=== PATIENT | female | born 1975 | race Caucasian/White ===

== ENCOUNTER 2019-11-18 18:49 | Emergency (ER) | payer BC, SELFPAY ==
[2019-11-18] VITALS (7 sets, daily range): BP systolic 126–151; BP diastolic 73–91; PULSE 97–123; RESP 16–20; TEMP 36.7–36.9; O2SAT 98–99
--- NOTE | ~2019-11-18 | XR_ITS ---
EXAMINATION: XR chest 2V EXAM DATE: 11/18/2019 19:27 INDICATION: Tachycardia and shortness of breath. TECHNIQUE: Frontal and lateral projections of the chest obtained and reviewed. There is no prior maximilian dy for comparison. FINDINGS: The lungs are clear. There are no pleural effusions. The cardiomediastinal silhouette is within normal limits. There is no pneumothorax suspected. The bones and soft tissues are unremarkab le. There are cholecystectomy clips. IMPRESSION: No acute cardiopulmonary findings. Reviewed, dictated and finalized at location A. CTIVE CAPTAIN
--- NOTE | 2019-11-18 18:58 | ECG_ITS ---
Measurements Intervals [place] Rate: 122 P: 56 [place]: 112 QRS: 71 QRSD: 86 T: 19 QT: 287 QTc: 410 Interpretive Statements SINUS TACHYCARDIA ABNORMAL ECG Electronically Signed On 11-19-2019 6:54:54 BLOOD BANK SPECIALIST by Jeanmarie Waterman D.O.
--- NOTE | 2019-11-18 19:06 | ED.CHESTPAIN ---
HPI - Chest Pain General Chief Complaint: Chest Pain Stated Complaint: Tachycardia,CP Time Seen by Provider: 11/18/19 18:57 Source: patient and RN notes reviewed Mode of arrival: other Limitations: no limitations History of Present Illness HPI narrative: Pt is a 44 y/o female who presents to the ED with c/o intermittent chest heaviness pain that radiates to her left sided neck and her left shoulder, but became more constant today. Pt describes the pain in her neck and shoulder as a tightness pain. Pt states that her heart rate was 136 BPM while resting and she notes her resting heart rate is normally at 99 BPM. Pt was seen at [place] today. She states that she thought she had an episode of esophagitis. Pt takes Protonix for her esophagitis. She states that increased her dosage of Protonix from one tablet a day to 2 tablets a day two weeks ago. Pt took Tums last night for her sx, but with no relief. Pt had 4 ASA while at [place] and she states that she is currently pain free. She also reports an intermittent heart flutter for the past two months, but she denies seeing her PCP about her sx. She notes that her next appointment with her PCP is in three months. Pt reports resolved SOB, but denies dizziness, diaphoresis, and nausea. MD complaint: chest pain Onset (ago): week(s) (1) Timing of current episode: now resolved Pain location: other (generalized) Pain radiation: neck and left shoulder Quality: heaviness Associated symptoms: dyspnea (resolved) and other (tachycardia, heart flutters) Treatment prior to arrival: aspirin (4) Related Data Allergies Allergy/AdvReac Type Severity Reaction Status Date / Time Penicillins Allergy Unknown Verified 11/18/19 19:08 Sulfa (Sulfonamide Allergy Unknown Verified 11/18/19 19:08 Antibiotics) Review of Systems Review of Systems: All systems reviewed & are unremarkable except as noted in HPI and below Cardiovascular: Cardiovascular: Reports chest pain (heaviness, that radiates to her left sided neck and left shoulder), Denies diaphoresis, Reports rapid heart rate and Reports irregular heart rhythm Respiratory: Respiratory: Reports dyspnea (resolved) Gastrointestinal: Gastrointestinal: Denies nausea Neurologic: Denies dizziness PMFSH Past Medical History Medical History (Updated 11/19/19 @ 00:00 by Background Daemon) Esophagitis Fatty liver GERD (gastroesophageal reflux disease) Restless leg syndrome Ruptured appendix Surgical History Surgical History (Updated 11/18/19 @ 19:27 by Michelle Cruz) History of bladder suspension procedure History of ERCP History of hysterectomy Hx of cholecystectomy Hx of tonsillectomy Family History Family History (Updated 11/18/19 @ 19:26 by Michelle Cruz) Father , age 66 d/t liver cancer Hx of heart artery stent, Onset Age: 53 x5 Liver cancer Social History Social History (Updated 11/18/19 @ 19:30 by Michelle Cruz) Social History: Pt smokes about 2 cigarettes a week. Pt only smokes whenever she is stressed. Smoking status: Current some day smoker Tobacco type: cigarettes Alcohol intake: never Substance use: never Substance use type: does not use Gender identity (if verbalized by the patient): Female Exam Narrative: Exam Narrative: GENERAL: Well-appearing, well-nourished, and in no acute distress. HEAD: Normocephalic, atraumatic EYES: PERRLA and EOMI, conjunctiva clear without discharge THROAT:Mucous membranes moist, Oropharynx normal without erythema, exudate, peritonsillar swelling or fluctuance NECK: Supple, without lymphadenopathy or mass RESPIRATORY: No respiratory distress, Airway patent, Respirations non-labored, Clear to auscultation without rales, rhonchi or wheeze HEART: Tachycardic Regular rate and regular rhythm. No murmur heard. Normal peripheral pulses. ABDOMEN: Soft, nontender, nondistended, normal active bowel sounds. No masses. No rebound or guarding, No organom
[2019-11-18 19:29] LABS: Basophils Percent Auto 0.2 % (0.2-1.2); Eosinophils Absolute Auto 0.1 K/mm3 (0-0.3); Eosinophils Percent Auto 1.4 % (0-4.4); Hematocrit 44.1 % (37.0-47.0); Hemoglobin 14.6 g/dL (12.0-15.0); Immature Granulocyte Absolute 0.02 K/mm3 (0.00-0.031); Immature Granulocyte Percent A 0.2 % (0-0.5); Lymphocytes Absolute Auto 3.03 K/mm3 (0.9-3.2); Lymphocytes Percent Auto 35.7 % (18.3-44.2); Mean Corpuscular HGB Conc 33.1 g/dl (32-36); Mean Corpuscular Hemoglobin 28.9 pg (26-34); Mean Corpuscular Volume 87.2 fl (80-100); Mean Platelet Volume 9.8 fl (7.4-10.4); Monocytes Absolute Auto 0.8 K/mm3 (0.1-0.6); Monocytes Percent Auto 9.9 % (2.6-8.5); Neutrophils Absolute Auto 4.5 K/mm3 (1.3-6.7); Neutrophils Percent Auto 52.6 % (45.5-73.1); Platelet Count Result 342 k/mm3 (150-375); Red Blood Count 5.06 M/mm3 (4.2-5.4); Red Cell Distribution Width 11.7 % (11.5-14.5); White Blood Count 8.5 K/mm3 (4.5-10.0)
[2019-11-18] MEDS: LACTATED RINGERS 1,000 ML 999 ML IV CONT (19:29)
[2019-11-18 19:43] LABS: Alanine Aminotransferase 49 U/L (4-35); Albumin Level 4.7 g/dL (3.5-5.1); Alkaline Phosphatase 138 U/L (38-126); Aspartate Amino Transferase 34 U/L (14-36); Bilirubin,Total 0.8 mg/dL (0.2-1.3); Blood Urea Nitrogen 12 mg/dL (7-17); Calcium 9.2 mg/dL (8.4-10.2); Carbon Dioxide 26 mmol/L (22-30); Chloride 100 mmol/L (98-107); Estimated Glomerular Filt Rate > 60; Glucose 122 mg/dL (65-105); Magnesium 1.9 mg/dL (1.6-2.3); Sodium 141 mmol/L (137-145)
[2019-11-18 19:51] LABS: Troponin I < 0.012 ng/mL (0.000-0.034)
[2019-11-18 20:03] LABS: INR 0.9; Partial Thromboplastin Time 27.9 SECONDS (22.3-36.8); Prothrombin Time 11.5 Seconds (11.1-14.7)
[2019-11-18 20:04] LABS: Lactic Acid Reflex 1.9 mmol/L (0.7-2.1)
[2019-11-18 20:07] LABS: D Dimer 0.27 ug/mL (<0.48)
[2019-11-18 21:58] LABS: Thyroid Stimulating Hormone Reflex < 0.015 uIU/mL (0.465-4.68)
[2019-11-18 22:48] LABS: Troponin I < 0.012 ng/mL (0.000-0.034)
[2019-11-18 22:53] LABS: Free T4 Free Thyroxine Reflex < 0.07 ng/dL (0.78-2.19)
== END 2019-11-18 23:18 | disposition home or self-care (01) ==
PROVIDERS: Emergency Provider General Practice
DX: R07.89 Other chest pain (principal); R00.0 Tachycardia, unspecified; K21.0 Gastro-esophageal reflux disease with esophagitis; G25.81 Restless legs syndrome
CPT/HCPCS: 36415; 71046; 80053; 83605; 83735; 84439; 84443; 84484; 85025; 85380; 85610; 85730; 93005; 96360; 99284; J7120

== ENCOUNTER 2021-12-20 16:27 | Outpatient (CLI) | payer OTHER, SELFPAY ==
--- NOTE | ~2021-12-20 | MM_ITS ---
EXAMINATION: MM scrn misha implant BI w davonte HISTORY: Screening mammogram TECHNIQUE: Craniocaudal and mediolateral oblique 3-D tomosynthesis images with implant displacement a nd synthetic 2-D images were generated. Craniocaudal and mediolateral oblique views of the breasts wi thout implant displacement were obtained using full field digital mammography. CAD analysis was submi tted and interpreted. COMPARISON: No prior mammogram is available for comparison at this institution. BREAST PARENCHYMAL COMPOSITION: The breasts are extremely dense, which lowers the sensitivity of mamm ography FINDINGS: There are focal asymmetries centered in the upper outer quadrant of the right breast. There are no suspicious masses, calcifications or architectural distortion in the left breast to suggest m alignancy. IMPRESSION: 1. Focal asymmetries in the right breast. 2. Additional mammographic views and possible breast ultrasound are recommended. BI-RADS Category 0: Incomplete: Needs additional imaging evaluation. Reviewed, dictated and finalized at location A. IMPRESSION: 1. Focal asymmetries in the right breast. 2. Additional mammographic views and possible breast ultrasound are recommended . BI-RADS Category 0: Incomplete: Needs additional imaging evaluation.
== END 2021-12-20 16:28 | disposition home or self-care (01) ==
LOC: ANHIMG 16:29
PROVIDERS: Visit Provider Nurse Practitioner Obstetrics & Gynecology
DX: Z12.31 Encounter for screening mammogram for malignant neoplasm of breast (principal); R92.8 Other abnormal and inconclusive findings on diagnostic imaging of breast
CPT/HCPCS: 77063; 77067

== ENCOUNTER 2022-01-23 12:54 | Outpatient (CLI) | payer OTHER, SELFPAY ==
--- NOTE | ~2022-01-23 | MMUS_ITS ---
EXAMINATION: MM diagnostic misha BI w davonte, US breast BI complete HISTORY: Follow-up breast asymmetries TECHNIQUE: Additional 3-D tomosynthesis images of the breasts were performed and synthetic 2-D images were generated. CAD analysis was submitted and interpreted. High resolution complete bilateral breas t ultrasound was performed. COMPARISON: Comparison to multiple prior studies sequentially, with oldest reviewed study dated 06/19. BREAST PARENCHYMAL COMPOSITION: The breasts are heterogenously dense, which may obscure small masses FINDINGS: MAMMOGRAPHIC FINDINGS: There are no discrete masses, calcifications or architectural distortion in either breast to suggest malignancy. ULTRASOUND: Complete bilateral US of all 4 quadrants of the breasts and retroareolar region was reviewed. Right breast: At 2:00, 5 cm from the nipple there is an oval hypoechoic mass with low level internal echoes measuring 8 x 7 x 4 mm. There is parallel orientation. There is peripheral acoustic enhancemen t. No internal vascularity. At 3:00 near the nipple is a cluster of microcysts. Left breast: Normal heterogeneous echotexture without focal solid or cystic mass. IMPRESSION: 1. Probable benign right breast mass at 2:00, 5 cm from the nipple. 2. Recommend 6 month follow-up diagnostic bilateral mammogram and limited right breast ultrasound. BI-RADS category 3, probably benign findings. Reviewed, dictated and finalized at location A. IMPRESSION: 1. Probable benign right breast mass at 2:00, 5 cm from the nipple. 2. Recommend 6 month follow-up diagnostic bilateral mammogram and limited right breast ultrasound. BI-RADS category 3, probably benign findings.
== END 2022-01-23 12:55 | disposition home or self-care (01) ==
PROVIDERS: Visit Provider Nurse Practitioner Obstetrics & Gynecology
DX: R92.8 Other abnormal and inconclusive findings on diagnostic imaging of breast (principal)
CPT/HCPCS: 76641; 77062; 77066; G0279

== ENCOUNTER → 2022-08-15 10:50 | Outpatient (CLI) | payer OTHER, SELFPAY ==
--- NOTE | ~2022-08-15 | CT_ITS ---
EXAMINATION: CT abdomen pelvis wo/w con DATE: 08/15/2022 11:25 INDICATION: Recurrent urinary tract infections TECHNIQUE: Computed tomography (CT) of the abdomen and pelvis was performed without and subsequently with 130 CC Omnipaque 350 intravenous contrast. Automated exposure control and iterative reconstructi on technique were employed. Exam dose: 943.99 mGy-cm total exam DLP. COMPARISON: None. FINDINGS: The lung bases are clear. Normal heart size. No pericardial or pleural effusion. Status post cholecystectomy. No hepatic, splenic, pancreatic, adrenal space-occupying mass lesion. 6 mm posterior upper pole left renal cyst. No renal mass lesion or scarring or renal atrophy is noted otherwise. No abnormal filling defect of the renal collecting structures, ureters or urinary bladder is noted. No urinary bladder wall thickening. No urinary tract calculus or hydroureteronephrosis. Status post hysterectomy. Normal caliber of the abdominal aorta. No intraperitoneal or retroperitoneal or pelvic mass lesion or adenopathy or ascites. Normal appendix. There is relative evacuation of the colon with mild: wall thickening and some fat in the wall which may be due to acute superimposed upon chronic inflammation. There is mild liquid stoo l accumulation in the colon. No bowel obstruction, pneumatosis or intraperitoneal free air. There is fusion of the T10-T12 vertebral bodies. No suspicious osteolytic or osteoblastic lesions are noted. IMPRESSION: Status post cholecystectomy Status post hysterectomy Normal appendix Acute superimposed upon chronic colitis is suggested 6 mm left renal cyst Reviewed, dictated and finalized at Location A. Reviewed, dictated and finalized at location B. URCE DEVELOPMENT MANAGER
[2022-08-15 11:07] LABS: Estimated Glomerular Filt Rate > 60
== END ==
PROVIDERS: PCP Nurse Practitioner Adult Health
DX: R39.9 Unspecified symptoms and signs involving the genitourinary system (principal); Z90.49 Acquired absence of other specified parts of digestive tract; N28.1 Cyst of kidney, acquired
CPT/HCPCS: 74178; Q9967

== ENCOUNTER 2022-12-27 11:14 | Outpatient (CLI) | payer OTHER, SELFPAY ==
--- NOTE | ~2022-12-27 | US_ITS ---
US right upper quadrant INDICATION: Fatty infiltration of the liver PROCEDURE: Realtime right upper abdominal ultrasound. COMPARISON: No prior studies for comparison. FINDINGS: The pancreas is normal without focal mass or pancreatic ductal dilation. Liver echotexture is normal without focal mass or intrahepatic biliary dilatation. There is normal directional flow i n the portal vein. The gallbladder is normal without stones, gallbladder wall thickening or pericholecystic fluid. Comm on bile duct measures 3.5 mm. No sonographic Boyce's sign. IMPRESSION: 1: Normal limited abdominal ultrasound. Reviewed, dictated and finalized at location B.
== END 2022-12-27 11:15 | disposition home or self-care (01) ==
PROVIDERS: PCP Nurse Practitioner Adult Health
DX: K76.0 Fatty (change of) liver, not elsewhere classified (principal)
CPT/HCPCS: 76705

== ENCOUNTER 2022-12-27 11:45 | Outpatient (CLI) | payer OTHER, SELFPAY ==
--- NOTE | ~2022-12-27 | MMUS_ITS ---
EXAMINATION: MM diagnostic misha BI w davonte, US breast BI complete HISTORY: Probable benign right breast mass at 2:00 5 cm from nipple, for which six-month diagnostic m ammogram and limited right breast ultrasound follow-up are recommended on 02/02/2022 bilateral diagnos tic mammogram and bilateral breast ultrasound report TECHNIQUE: ML, MLO and CC full field and spot 3-D tomosynthesis images of both breasts were performed and synthetic 2-D images were generated. CAD analysis was submitted and interpreted. High resolution bilateral complete breast ultrasound examination including all 4 quadrants and subareolar areas was performed. COMPARISON: 02/02/2022 bilateral diagnostic mammogram and bilateral breast ultrasound examination 12/20/2021 bilateral implant screening mammogram BREAST PARENCHYMAL COMPOSITION: The breasts are extremely dense, which lowers the sensitivity of mamm ography. FINDINGS: MAMMOGRAPHIC FINDINGS: Collapsed left breast implant. Minimal benign calcification is noted in the breasts. No suspicious mass or architectural distortion, malignant calcification, skin thickening or retractio n or significant new or developing density is detected. ULTRASOUND: Right breast: 2:00 5 cm from nipple: Parallel circumscribed hypoechoic 4 x 7.5 mm lesion without internal vasculari ty or posterior shadowing, benign in appearance 10:00 10 cm from nipple: Parallel circumscribed hypoechoic 3.8 x 8.8 mm hypoechoic lesion without int ernal vascularity, with through transmission posterior enhancement, benign in appearance No left suspicious mass or shadowing is detected. Left breast: No suspicious mass or shadowing is detected. No other significant sonographic abnormalit y. IMPRESSION: 1. Benign findings 2. Routine annual mammographic screening is recommended. BI-RADS Category 2: Benign finding(s). Reviewed, dictated and finalized at location A. IMPRESSION: 1. Benign findings 2. Routine annual mammographic screening is recommended. BI-RADS Category 2: Benign finding(s).
== END 2022-12-27 11:46 | disposition home or self-care (01) ==
LOC: ANHIMG 11:46
PROVIDERS: PCP Nurse Practitioner Adult Health; Visit Provider Nurse Practitioner Obstetrics & Gynecology
DX: N63.10 Unspecified lump in the right breast, unspecified quadrant (principal)
CPT/HCPCS: 76641; 77062; 77066; G0279

== ENCOUNTER 2024-02-01 13:24 | Outpatient (CLI) | payer OTHER, SELFPAY ==
--- NOTE | ~2024-02-01 | MMUS_ITS ---
EXAMINATION: MM diagnostic misha BI w davonte, US breast BI complete HISTORY: Left breast lumps TECHNIQUE: Bilateral full field MLO, MLO and CC and spot left MLO, MLO and CC 3-D tomosynthesis image s were performed and synthetic 2-D images were generated. CAD analysis was submitted and interpreted. High resolution bilateral complete breast ultrasound examination including all 4 quadrants and subar eolar area of each breast was performed. COMPARISON: December 27, 2022 bilateral diagnostic mammogram and bilateral complete breast ultrasound ex amination BREAST PARENCHYMAL COMPOSITION: The breasts are heterogeneously dense, which may obscure small masses . FINDINGS: MAMMOGRAPHIC FINDINGS: Collapsed left breast implant is noted. No suspicious mass or architectural distortion, malignant calcification, skin thickening or retractio n or significant new or developing density is detected. ULTRASOUND: Right breast: No suspicious mass or shadowing is detected. 1:00 6 images from nipple: Well-circumscribed multi septated cyst with through transmission posterio r enhancement 10:00 5 cm from nipple: Well-circumscribed septated cyst with through transmission and posterior enh ancement. This measures 2.5 x 6.6 x 6.1 mm. Left breast: No suspicious mass or shadowing or other specific sonographic abnormality IMPRESSION: 1. Benign findings 2. Routine annual mammographic screening is recommended BI-RADS Category 2: Benign finding(s). Reviewed, dictated and finalized at location B. IMPRESSION: 1. Benign findings 2. Routine annual mammographic screening is recommended BI-RADS Category 2: Benign finding(s).
== END 2024-02-01 13:25 | disposition home or self-care (01) ==
PROVIDERS: PCP Nurse Practitioner Adult Health; Visit Provider Nurse Practitioner
DX: N63.0 Unspecified lump in unspecified breast (principal)
CPT/HCPCS: 76641; 77062; 77066; G0279

== ENCOUNTER 2024-03-28 10:15 | Outpatient (CLI) | payer BC, SELFPAY ==
--- NOTE | ~2024-03-28 | US_ITS ---
EXAMINATION: US thyroid DATE: 03/28/2024 10:32 INDICATION: Goiter. TECHNIQUE: Multiple ultrasound images of the thyroid were obtained. COMPARISON: None. FINDINGS: The right thyroid lobe measures 3.8 x 0.8 x 1.5 cm. The left thyroid lobe measures 3.2 x 0.7 x 0.9 c m. There is normal echotexture and echogenicity throughout the thyroid gland. No discrete nodules id entified. Normal vascular flow is present. IMPRESSION: 1. Normal thyroid. Reviewed, dictated and finalized at location E. IMPRESSION: 1. Normal thyroid.
== END 2024-03-28 10:16 ==
PROVIDERS: PCP Internal Medicine; Visit Provider Internal Medicine
DX: E04.9 Nontoxic goiter, unspecified (principal)
CPT/HCPCS: 76536

== ENCOUNTER 2024-08-22 09:58 | Outpatient (CLI) | payer BC, SELFPAY ==
--- NOTE | ~2024-08-22 | DEXA_ITS ---
Bone Density Report Name: JOSE ALFREDO HERNANDEZ Age: 49 Sex: Female Ethnicity: White Date of : 1975 Indication: postmenopausal; screening for osteoporosis; prior fracture; hysterectomy; Referring Provider: YESENIA MILLIGAN Study: Bone densitometry was performed. Exam Date: August 22, 2024 Accession number: [id number] Bone Density: Region BMD T-score Z-score Classification AP Spine(L1-L4) 0.976 -0.6 0.2 Normal Femoral Neck (Left) 0.666 -1.7 -0.8 Osteopenia Total Hip (Left) 0.854 -0.7 -0.2 Normal Femoral Neck (Right) 0.661 -1.7 -0.9 Osteopenia Total Hip (Right) 0.797 -1.2 -0.7 Osteopenia Total Hip Mean 0.826 -1.0 -0.5 Normal World Health Organization criteria for BMD impression classify patients as: Normal (T-score at or above -1.0), Osteopenia (T-score between -1.0 and -2.5), or Osteoporosis (T-score at or below -2.5). 10-year Fracture Risk: FRAX not reported because: Prior hip or vertebral fracture Clinical Information Provided by Patient: Have had a previous hip or vertebral fracture Has had a low trauma fracture Smokes Has used the following medications: HRT (i.e. estrogen/hormone therapy), Vitamin D, Calcium, mulit vit Has the following medical conditions: Hysterectomy Patient maximum height was 63 Menopause Age: 34 Drinks caffeinated beverages Onset of menses at age 11 Number of children 2 Impression: The patient has low bone mass, based on the Left Femoral Neck T-score. The patient has risk factors, including: smoking, previous fracture. Discussion: INCREASED RISK OF FRACTURE DUE TO HISTORY OF FRACTURE. The patient's previous fracture puts the patient at high risk of a future fracture. In untreated patients, the risk of osteoporotic fracture increases approximately two-fold for each 1.0 SD decrease in T-score. Low bone density is not the only risk factor for fracture; also consider factors such as patient's age, frailty or poor health, risk of falling, risk of injury, previous osteoporotic fracture, family history of osteoporosis, cigarette smoking, low body weight, etc. Not everyone with a low trauma fracture has osteoporosis; osteomalacia and other metabolic bone disorders should also be considered. Patients who have osteoporosis should be evaluated for specific diseases and conditions (secondary causes) that may cause or contribute to bone loss and fracture risk. National Osteoporosis Foundation (NOF) recommends pharmacologic intervention for patients with a prior hip or vertebral fracture regardless of BMD T-score. The patient should follow a healthful lifestyle (good nutrition with adequate calcium and vitamin D, and appropriate weight-bearing exercise). Follow-Up: Consider a repeat BMD and Vertebral Fracture Assessment (VFA) exam in 2 years or sooner if medically necessary, to reassess this patient's status. Reported by: ADONIS on 08/22/2024 10:36:00 AM. Reviewed, dictated and finalized at location AN[facility] BILLINGS
== END 2024-08-22 09:59 | disposition home or self-care (01) ==
LOC: ANHIMG 10:03
PROVIDERS: PCP Internal Medicine; Visit Provider Internal Medicine
DX: E05.80 Other thyrotoxicosis without thyrotoxic crisis or storm (principal); E03.9 Hypothyroidism, unspecified; M85.852 Other specified disorders of bone density and structure, left thigh; M85.851 Other specified disorders of bone density and structure, right thigh
CPT/HCPCS: 77080

== ENCOUNTER 2025-05-27 10:14 | Outpatient (CLI) | payer BC, SELFPAY ==
--- OUTSIDE RECORDS SUMMARY | 2013-02-26 | XMS_ITS | Encounter Summary ---
Author Organization [facility] Healthcare Address [address] [place] [address] Care Team Providers Care Scuba Diver Name Role Phone Unavailable Primary Care Provider Unavailabl e Reason for Visit * Diagnostic Imaging (Routine) - Closed Specialty Diagnoses / Procedures Referred By Jose Cruz munguia Referred To Contact Procedures Breast Imaging US Outside Reference Krista Warren NP Phone: tel: fax: Referral ID Status Reason Start Date Expiration Date Visits Re quested Visits Authorized [id number] Closed 02/23/2022 03/25/2023 1 1 Encounter Details Date Type Department Care Team (Late st Contact Info) Description 02/26/2013 Hospital Encounter [facility] [address] [place] [address] Social History Tobacco Use Types Packs/Day [...] on file Legal Sex Female 1:09 PM 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 There will be no report generated by a [facility] Radiologist. Narrative RAD_M[facility]MO[facility] - 02/23/2022 12:07 PM CDT EXAMINATION: Images For Reference Purposes Only us Krista Warren NP IMG MAMMO PROCEDURES Final Re sult [facility] documented in this encounter Visit Diagnoses Not on filedocumented in this encounter
--- OUTSIDE RECORDS SUMMARY | 2016-11-10 01:00 | XMS_ITS | Encounter Summary ---
Author Organization [facility] Healthcare Address [address] [place] [address] Care Team Providers Care Boring Mill Set Up Operator Vertical Name Role Phone Unavailable Primary Care Provider Unavailabl e Reason for Visit * Diagnostic Imaging (Routine) - Closed Specialty Diagnoses / Procedures Referred By Jose Cruz munguia Referred To Contact Procedures Breast Imaging US Outside Reference Krista Warren NP Phone: tel: fax: Referral ID Status Reason Start Date Expiration Date Visits Re quested Visits Authorized [id number] Closed 02/23/2022 03/25/2023 1 1 Encounter Details Date Type Department Care Team (Late st Contact Info) Description 11/10/2016 Hospital Encounter [facility]iology [facility] [address] [place] [address] Social History Tobacco Use Types Packs/Day [...] on file Legal Sex Female 1:09 PM MAILS SUPERVISOR Gender Identity Not on file Sexual Orientation Not on file documented as of this encounter Plan of Treatment Not on file documented as of this encounter Procedures Procedure Name Priority Date/Time Associated Diagnosis Comments BREAST IMAGING US OUTSIDE REFERENCE Routine 11/10/2016 12:00 AM MAILS SUPERVISOR documented in this encounter Results * Breast Imaging US Outside Reference (11/10/2016 12:00 AM MAILS SUPERVISOR) Impressions [facility] - 02/23/2022 12:07 PM CDT These images are for Reference purposes only and have not been reviewed by [facility]. There will be no report generated by a [facility] Radiologist. Narrative RAD[facility]MO[facility] - 02/23/2022 12:07 PM CDT EXAMINATION: Images For Reference Purposes Only us Krista Warren NP IMG MAMMO PROCEDURES Final Re sult [facility] documented in this encounter Visit Diagnoses Not on filedocumented in this encounter
--- OUTSIDE RECORDS SUMMARY | 2016-11-13 01:00 | XMS_ITS | Encounter Summary ---
Author Organization [facility] Healthcare Address [address] [place] [address] Care Team Providers Care Pie Bottomer Name Role Phone Unavailable Primary Care Provider Unavailabl e Reason for Visit * Diagnostic Imaging (Routine) - Closed Specialty Diagnoses / Procedures Referred By Jose Cruz munguia Referred To Contact Procedures Breast Imaging Diagnostic Outside Reference Krista Warren NP Phone: tel: fax: Referral ID Status Reason Start Date Expiration Date Visits Re quested Visits Authorized [id number] Closed 02/23/2022 03/25/2023 1 1 Encounter Details Date Type Department Care Team (Late st Contact Info) Description 11/13/2016 Hospital Encounter [facility] [address] [place] [address] Social History Tobacco Use Types Packs/Day [...] on file Legal Sex Female 1:09 PM STRAP CUTTER Gender Identity Not on file Sexual Orientation Not on file documented as of this encounter Plan of Treatment Not on file documented as of this encounter Procedures Procedure Name Priority Date/Time Associated Diagnosis Comments BREAST IMAGING MG DIAGNOSTIC OUTSIDE REFERENCE Routine 11/13/2016 12:00 AM STRAP CUTTER documented in this encounter Results * Breast Imaging Diagnostic Outside Reference (11/13/2016 12:00 AM STRAP CUTTER) Impressions RAD[facility]MO[facility] - 02/23/2022 12:06 PM CDT These images are for Reference purposes only and have not been reviewed by [facility]iology. There will be no report generated by a [facility] Radiologist. Narrative RAD_M[facility]MO[facility] - 02/23/2022 12:06 PM CDT EXAMINATION: Images For Reference Purposes Only us rKista Warren NP IMG MAMMO PROCEDURES Final Re sult [facility] documented in this encounter Visit Diagnoses Not on filedocumented in this encounter
--- OUTSIDE RECORDS SUMMARY | 2017-05-24 | XMS_ITS | Encounter Summary ---
Author Organization [facility] Healthcare Address [address] [place] [address] Care Team Providers Care Tongue And Groove Machine Operator Name Role Phone Unavailable Primary Care Provider Unavailabl e Reason for Visit * Diagnostic Imaging (Routine) - Closed Specialty Diagnoses / Procedures Referred By Jose Cruz munguia Referred To Contact Procedures Breast Imaging Diagnostic Outside Reference Krista Warren NP Phone: tel: fax: Referral ID Status Reason Start Date Expiration Date Visits Re quested Visits Authorized [id number] Closed 02/23/2022 03/25/2023 1 1 Encounter Details Date Type Department Care Team (Late st Contact Info) Description 05/24/2017 Hospital Encounter [facility] Radiology [facility] [address] [place] [address] Social History Tobacco Use Types Packs/Day [...] on file Legal Sex Female 1:09 PM PULMONARY CARE NURSE Gender Identity Not on file Sexual Orientation [...] only and have not been reviewed by [facility] Radiology. There will be no report generated by a [facility] Radiologist. Narrative RAD_MAMMO_[facility] - 02/23/2022 12:05 PM CDT EXAMINATION: Images For Reference Purposes Only us Krista Warren NP IMG MAMMO PROCEDURES Final Re sult RAD_M[facility] documented in this encounter Visit Diagnoses Not on filedocumented in this encounter
--- OUTSIDE RECORDS SUMMARY | 2017-05-24 00:05 | XMS_ITS | Encounter Summary ---
Author Organization [facility] Healthcare Address [address] [place] [address] Care Team Providers Care Circular Sawyer Stone Name Role Phone Unavailable Primary Care Provider Unavailabl e Reason for Visit * Diagnostic Imaging (Routine) - Closed Specialty Diagnoses / Procedures Referred By Jose Cruz munguia Referred To Contact Procedures Breast Imaging US Outside Reference Krista Warren NP Phone: tel: fax: Referral ID Status Reason Start Date Expiration Date Visits Re quested Visits Authorized [id number] Closed 02/23/2022 03/25/2023 1 1 Encounter Details Date Type Department Care Team (Late st Contact Info) Description 05/24/2017 12:05 AM CDT Hospital Encounter [facility] [address] [place] [address] Social History Tobacco Use Types Packs/Day [...] on file Legal Sex Female 1:09 PM SENIOR QUALITY METHODS SPECIALIST Gender Identity Not on file Sexual [...] have not been reviewed by [facility]iology. There will be no report generated by a [facility] Radiologist. Narrative RAD_MAMMO_[facility] - 02/23/2022 12:06 PM CDT EXAMINATION: Images For Reference Purposes Only us Krista Warren ARTIST WOODBLOCK IMG MAMMO PROCEDURES Final Re sult RAD_M[facility]MO[facility] documented in this encounter Visit Diagnoses Not on filedocumented in this encounter
--- OUTSIDE RECORDS SUMMARY | 2017-12-13 | XMS_ITS | Encounter Summary ---
Author Organization [facility] Healthcare Address [address] [place] [address] Care Team Providers Care Administrative Law Judge Name Role Phone Unavailable Primary Care Provider Unavailabl e Reason for Visit * Diagnostic Imaging (Routine) - Closed Specialty Diagnoses / Procedures Referred By Jose Cruz munguia Referred To Contact Procedures Breast Imaging Diagnostic Outside Reference Krista Warren NP Phone: tel: fax: Referral ID Status Reason Start Date Expiration Date Visits Re quested Visits Authorized [id number] Closed 02/23/2022 03/25/2023 1 1 Encounter Details Date Type Department Care Team (Late st Contact Info) Description 12/13/2017 Hospital Encounter [facility]iology [facility] [address] [place] [address] Social History Tobacco Use Types Packs/Day [...] on file Legal Sex Female 1:09 PM FURS SALESPERSON Gender Identity Not on file Sexual Orientation [...] only and have not been reviewed by [facility] Radiology. There will be no report generated by a [facility] Radiologist. Narrative RAD_MAMMO_[facility] - 02/23/2022 12:05 PM CDT EXAMINATION: Images For Reference Purposes Only us Krista Warren NP IMG MAMMO PROCEDURES Final Re sult [facility] documented in this encounter Visit Diagnoses Not on filedocumented in this encounter
--- OUTSIDE RECORDS SUMMARY | 2018-07-17 | XMS_ITS | Encounter Summary ---
Author Organization [facility] Healthcare Address [address] [place] [address] Care Team Providers Care Fire Crew Specialist Name Role Phone No, Physician Primary Care Provider [phone] Reason for Visit * Diagnostic Imaging (Routine) - Closed Specialty Diagnoses / Procedures Referred By Jose Cruz munguia Referred To Contact Procedures Breast Imaging Diagnostic Outside Reference Krista Warren, OBED Phone: tel: fax: Referral ID Status Reason Start Date Expiration Date Visits Re quested Visits Authorized [id number] Closed 02/23/2022 03/25/2023 1 1 Encounter Details Date Type Department Care Team (Late st Contact Info) Description 07/17/2018 Hospital Encounter [facility] [address] [place] [address] Social History Tobacco Use Types [...] on file 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 There will be no report generated by a [facility] Radiologist. Narrative [facility] - 02/23/2022 12:04 PM CDT EXAMINATION: Images For Reference Purposes Only us Krista Warren RAISER HELPER IMG MAMMO PROCEDURES Final Re sult [facility] documented in this encounter Visit Diagnoses Not on filedocumented in this encounter Care Teams Fire Crew Specialist Relationship Specialty Start Date End Date No, Physician PCP - General 01/12/18 01/29/22 documented as of this encounter
--- OUTSIDE RECORDS SUMMARY | 2019-10-24 01:00 | XMS_ITS | Encounter Summary ---
Author Organization [facility] Healthcare Address [address] [place] [address] Care Team Providers Care Community Center Director Name Role Phone No, Physician Primary Care Provider [phone] Reason for Visit * Diagnostic Imaging (Routine) - Closed Specialty Diagnoses / Procedures Referred By Jose Cruz munguia Referred To Contact Procedures Breast Imaging Diagnostic Outside Reference Krista Warren, OBED Phone: tel: fax: Referral ID Status Reason Start Date Expiration Date Visits Re quested Visits Authorized [id number] Closed 02/23/2022 03/25/2023 1 1 Encounter Details Date Type Department Care Team (Late st Contact Info) Description 10/24/2019 Hospital Encounter [facility] Radiology [facility] [address] [place] [address] Social History Tobacco Use Types [...] on file 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 Gender Identity Not on file Sexual Orientation Not on file documented as of this encounter Plan of Treatment Not on file documented as of this encounter Procedures Procedure Name Priority Date/Time Associated Diagnosis Comments BREAST IMAGING MG DIAGNOSTIC OUTSIDE REFERENCE Routine 10/24/2019 12:00 AM PUBLISHING EDITOR documented in this encounter Results * Breast Imaging Diagnostic Outside Reference (10/24/2019 12:00 AM PUBLISHING EDITOR) Impressions [facility] - 02/23/2022 12:04 PM CDT These images are for Reference purposes only and have not been reviewed by [facility] Radiology. There will be no report generated by a [facility] Radiologist. Narrative [facility] - 02/23/2022 12:04 PM CDT EXAMINATION: Images For Reference Purposes Only us Krista Warren ADVERTISING CAMPAIGN MANAGER IMG MAMMO PROCEDURES Final Re sult [facility] documented in this encounter Visit Diagnoses Not on filedocumented in this encounter Care Teams Community Center Director Relationship Specialty Start Date End Date No, Physician PCP - General 01/12/18 01/29/22 documented as of this encounter
--- NOTE | ~2025-05-27 | MM_ITS ---
EXAMINATION: MM diagnostic misha BI w davonte HISTORY: 50-year-old female with known deflated left breast saline implant complained of feeling and deflated implant moves while working out. She thought it is around 12:00 in the left breast. TECHNIQUE: Craniocaudal and mediolateral oblique 3-D tomosynthesis images were obtained and synthetic 2-D images were generated. CAD analysis was submitted and interpreted. COMPARISON: Comparison to multiple prior studies sequentially, with oldest reviewed study dated 07/17/2018. BREAST PARENCHYMAL COMPOSITION: The breasts are heterogeneously dense, which may obscure small masses. FINDINGS: Again is redemonstrated deflated left retroglandular saline implant. It is projecting over the inferior aspect of the pectoralis muscle and the position is essentially unchanged dating back to the study of 07/17/2018. There is no evidence of suspicious mass, calcification, or architectural distortion to suggest malignancy in either breast. IMPRESSION: 1. Deflated left retropectoral saline implant is unchanged in position. 2. No mammographic evidence of malignancy in either breast. RECOMMENDATIONS: Clinical management of patient's deflated implant, consider plastic surgery consultation. Recommend routine screening mammography in one year. BI-RADS Category 2: Benign finding(s). Reviewed, dictated and finalized at location B. IMPRESSION: 1. Deflated left retropectoral saline implant is unchanged in position. 2. No mammographic evidence of malignancy in either breast. RECOMMENDATIONS: Clinical management of patient's deflated implant, consider plastic surgery con sultation. Recommend routine screening mammography in one year. BI-RADS Category 2: Benign finding(s).
--- OUTSIDE RECORDS SUMMARY | 2025-05-27 11:07 | XMS_ITS | Clinical Summary ---
Author Organization [facility] Address [address] [place] [address] Care Team Providers Care Cigar Making Supervisor Name Role Phone Abida Mao OFFSET SECOND PRESS OPERATOR Unavailable [phone] No, Physician Primary Care Provider [phone] Allergies Active Allergy Reactions Criticality Noted Date Comments Alcohol Itching Medium 01/02/2016 Amoxicillin Unknown 01/12/2018 Ciprofloxacin Stomach upset Low 09/18/2018 Morphine Hallucinations Medium 01/11/2021 Penicillins Diarrhea,Stomach upset,Itching,Nausea And Vomiting,Rash Medium 01/02/2016 Prednisone Rash Medium 01/12/2018 Sulfa (Sulfonamide Antibiotics) Unknown,Stomach upset,Rash Medium 01/18/[address] (PROTONIX) 40 mg EC tablet Take 1 tablet (40 mg total) by mouth daily Active pramipexole (MIRAPEX) 0.125 mg tablet Take 1 tablet (0.125 mg total) by mouth nightly Active spironolactone (ALDACTONE) 50 mg tablet Take 1 tablet (50 mg total) by mouth 2 (two) times a day Active HYDROcodone-ch lorpheniramine ER (TUSSIONEX PENNKINETIC) 2-1.6 mg/mL ER suspension Take 5 mL by mouth every 12 (twelve) hours as needed for cough. 50 mL 8 Active Additional Information Patient not taking.Reported on 04/25/2024 ibuprofen (ibuprofen) 200 mg tab/cap Take 1 tablet/capsule (200 mg total) by mouth every 6 (six) hours as needed Active metFORMIN (GLUCOPHAGE) 500 mg tablet Take 1 tablet (500 mg total) by mouth 2 (two) times a day 2 Active atorvastatin (LIPITOR) 10 mg tablet Take 1 tablet (10 mg total) by mouth daily 4 Active Mounjaro 7.5 mg/0.5 mL pen injector INJECT 7.5 MG (0.5 ML) SUBCUTANEOUSLY WEEKLY Active traZODone (DESYREL) 50 mg tablet TAKE 1/2 TABLET BY MOUTH NIGHTLY FOR 2 WEEKS, THEN 1 TAB NIGHTLY NEEDED FOR SLEEP Active levothyroxine (SYNTHROID) 100 mcg tablet TAKE ONE TABLET (100MCG)BY MOUTH DAILY SKIP Sundays 4 Active liothyronine (CYTOMEL) 5 mcg tablet TAKE 1 TABLET (5MCG) BY MOUTH DAILY IN THE MORNING AND 1 TABLET (5MCG) DAILY IN THE EVENING. 4 Active medroxyPROGEST ERone (PROVERA) 10 mg tablet TAKE 1 TABLET BY MOUTH EVERY DAY IN THE EVENING FOR 30 DAYS 4 Active Active Problems Problem Noted Date Diagnosed Date Tachycardia 06/04/2023 Abnormal mammogram 09/03/2022 Depression 05/15/2016 Overview (04/25/2024): Doing well off medication, prior stressors Last Assessment & Plan: Monitor off medication ADD (attention deficit disorder) 02/07/2016 Overview (04/25/2024): Not on medication. Prior testing positive. Last Assessment & Plan: Refer for evaluation. Not on medication. Prior testing positive. Last Assessment & Plan: Refer for evaluation. Hypothyroidism due to acquired atrophy of thyroi d 02/07/2016 Overview (04/25/2024): Dose recently adjusted by physical security manager, doing well Last Assessment & Plan: Continue current medication. Dose recently adjusted by physical security manager, doing well Last Assessment & Plan: Continue current medication. Erosive gastritis with hemorrhage 11/02/2015 Overview (04/25/2024): Dr. Tariq/GI 10/2015, 02/2022 Last Assessment & Plan: Continue current medication. 10/2015 EGD- doing well with protonix-symptoms resolved Last Assessment & Plan: Continue current medication. Hiatal hernia 08/12/2013 Overview (04/25/2024): GERD sx if misses for 2-3 days Last Assessment & Plan: Continue current medication. GERD sx if misses for 2-3 days Last Assessment & Plan: Continue current medication. IBS (irritable bowel syndrome) 08/12/2013 Internal hemorrhoids 08/12/2013 Surgical History Surgery Date Site/Laterality Comments CHOLECYSTECTOMY HYSTERECTOMY BREAST SURGERY augmentation PHARYNGEAL FLAP Medical History Medical History Date Comments RLS (restless legs syndrome) Migraines Hypothyroid IBS (irritable bowel syndrome) Worsening headaches Hypothyroidism Hives Family History Medical History Relation Name Comments Liver cancer Father Lung cancer Father Lung cancer Paternal Grandfather Relation Name Status Comments Father Paternal Grandfather Social History Tobacco Use Types Packs/Day Years [...] on file Legal Sex Female 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 Gender Identity Not on file Sexual Orientation Not on file Obstetrics History Last Filed Vital Signs Vital Sign Reading Time Taken Comments Blood Pressure 124/86 04/25/2024 3:57 PM CDT Pulse 71 04/25/2024 3:57 PM CDT Temperature 36.7 C (98.1 F) 04/25/2024 3:57 PM CDT Respiratory Rate 16 04/25/2024 3:57 PM CDT Oxygen Saturation 99% 04/25/2024 3:57 PM CDT Inhaled Oxygen Concentration - - Weight 56.7 kg (125 lb) 04/25/2024 3:57 PM CDT Height 160 cm (5' 3) 04/25/2024 3:57 PM CDT Body Mass Index 22.14 04/25/2024 3:57 PM CDT Plan of Treatment Health Maintenance Due Date Last Done Comments Colon Cancer Screening-Colonoscopy 1975 Depression Screening 1975 Hepatitis C Screening 1975 Hepatitis B Screening 1991 Regular Well Visit/Exam 18-64 1991 Pneumococcal vaccine <65 (1 of 2 - PCV) 1992 Breast Cancer Screening-Mammogram 10/28/2016 016, 07/10/2014 Zoster Vaccine (2 of 2) 08/13/2023 06/18/2023 Covid-19 Vaccine (6 - 2024-2 6 season) 2025 06/07/2023, 02/05/2022, 08/03/2021, Additional history exists Influenza Vaccine (#1) 2025 3, 06/19/2022, 08/03/2021, Additional history exists DTaP/Tdap/Td Vaccine (2 - Td or Tdap) 06/29/2026 06/29/[id number] [place] [address] [employer] ANTHEM ACCESS ANTHEM ACCESS AETNA EXCHANGE [id number] [place] Care Teams Cigar Making Supervisor Relationship Specialty Start Date End Date No, Physician PCP - General 11/22/23 Abida Mao NP Nurse Practitioner Nurse Practitioner 01/31/22
--- OUTSIDE RECORDS SUMMARY | 2025-05-27 11:07 | XMS_ITS | Patient Health Record ---
Author Organization [facility] Address [address] [place] [address] Care Team Providers Care Telecommunications Repairer Name Role Phone Joseph Celaya Primary Care Provider [phone] Allergies Allergen (clinical drug ingredient) Drug/Non Drug Allergy documented on EMR Reaction Allergy Type Onset Date Status amoxicillin amoxicillin Unknown Drug Allergy Act ronnell Reason For Referral No Information Medications Medication SIG (Take, Route, Frequency, Duration) Notes Start Date End Date Status levothyroxine 200 mcg (0.2 mg) 1 tab(s) orally once a day; Duration: 30 day(s) Active metFORMIN Active pantoprazole 40 mg 1 tab(s) orally once a day; Duration: 30 day(s) Active ZyrTEC 10 mg 1 tab(s) orally once a day Active Zithromax Z-Duarte 250 mg 2 tablets on the first day, then 1 tablet daily for 4 days orally once a day; Duration: 5 days 09/15/2021 Active Plan Of Treatment No Information Insurance Providers Payer Name Payer Address Payer Phone Subscriber Number Group Number Insured Name Patient Relationship to Insured Coverage Start Date Coverage End Date [facility] [address] [place] [address] [id number] Jovana Henry Self - patient is the insured Medications Administered Medication Instructions Date of Administration Dosage Notes Celestone (1 cc) 6mg 09/15/2021 1 mL Medical (General) History Surgical History Surgery Date(Month/Year)
--- OUTSIDE RECORDS SUMMARY | 2025-05-27 11:07 | XMS_ITS | Clinical Summary ---
Author Organization [facility] Address [address] [place] [address] Care Team Providers Care Costuming Supervisor Name Role Phone Zurdo Coyne Primary Care Provider + Allergies Active Allergy Reactions Criticality Noted Date Comments Alcohol Itching Medium 01/02/2016 Amoxicillin Rash,GI Upset Low 03/08/2022 Ciprofloxacin GI Upset Low 09/18/2018 Morphine Hallucinations Medium 01/11/2021 Penicillins Rash Low 03/08/2022 Prednisone Rash Medium 01/12/2018 Sulfa Antibiotics Rash Low 03/08/2022 Medications levothyroxine 200 MCG tablet Take 200 mcg by mouth 2 (two) times a day. Active pramipexole 0.125 MG tablet Take 0.125 mg by mouth 3 (three) times daily. Active cetirizine 5 MG tablet Take 5 mg by mouth daily. Active metoprolol succinate ER (TOPROL-XL) 50 MG 24 hr tablet Take 1 tablet (50 mg total) by mouth daily. 10/20/2022 Active Liothyronine Sodium 50 MCG Tab Take 2 tablets by mouth 2 (two) times daily. Active MOUNJARO 7.5 MG/0.5ML injection once a week. 02/17/2022 Active traZODone (DESYREL) 50 MG tablet Take 1 tablet (50 mg total) by mouth nightly at bedtime. 01/19/2023 Active medroxyPROGESTE Efrain (PROVERA) 10 MG tablet Take 1 tablet (10 mg total) by mouth daily. 06/04/2023 Active pantoprazole EC (PROTONIX) 40 MG tablet Take 1 tablet (40 mg total) by mouth 2 (two) times daily. 12/18/2022 Active metFORMIN (GLUCOPHAGE) 500 MG tablet Take 1 tablet (500 mg total) by mouth 2 (two) times daily with meals. Active ivabradine (CORLANOR) 5 MG tablet Take 1 tablet (5 mg total) by mouth 2 (two) times daily with meals. 60 tablet 3 07/04/2023 Active Active Problems Problem Noted Date Diagnosed Date Tachycardia 06/04/2023 Family History Medical History Relation Comments Stent Cardiac Father Mitral valve prolapse Mother Relation Status Comments Brother Alive Father (Age 66) Maternal Grandfather (Age 72) Maternal Grandmother (Age 96) Mother Alive Paternal Grandfather (Age 73) Paternal Grandmother Alive Social History Tobacco Use Types Packs/Day Years Used Date Smoking Tobacco: Former Smokeless Tobacco: Never Tobacco Cessation:Counseling Given: Not Answered Alcohol Use Standard Drinks/Week Comments Yes 0 (1 standard drink = 0.6 oz pur e alcohol) occasional Comments No Sex and Gender Information Value Date Recorded Sex Assigned at Not on file Legal Sex Female 5:49 PM CDT Gender Identity Not on file Sexual Orientation Not on file Last Filed Vital Signs Vital Sign Reading Time Taken Comments Blood Pressure 112/80 06/13/2023 12:53 PM CDT Pulse 96 06/13/2023 12:53 PM CDT Temperature 36.7 C (98 F) 06/05/2023 12:01 AM CDT Respiratory Rate 22 06/05/2023 12:01 AM CDT Oxygen Saturation 97% 06/13/2023 12:53 PM CDT Inhaled Oxygen Concentration - - Weight 56.7 kg (125 lb) 06/13/2023 12:53 PM CDT Height 157.5 cm (5' 2) 06/13/2023 12:53 PM CDT Body Mass Index 22.86 06/13/2023 12:53 PM CDT Plan of Treatment Health Maintenance Due Date Last Done Comments Colorectal Cancer Screening Colonoscopy (10 Years) 1973 Annual Physical 1976 Hepatitis C 1991 Hepatitis B Vaccines (1 of 3 - 19+ 3-dose series) 1992 Mammogram Screening 2013 Pneumococcal Vaccine: 50+ Years (1 of 1 - PCV) 2023 Zoster Vaccines (1 of 2) 2023 COVID-19 Vaccine ( season) 2025 02/05/2022, 08/03/2021, 12/24/2020, Additional history exists DTaP, Tdap and Td Vaccines (2 - Td or Tdap) 06/29/2026 06/29/2016 Meningococcal B Vaccine Aged Out No l onger eligible based on patient's age to complete this topic Meningococcal Vaccine Aged Out No paolo falguni eligible based on patient's age to complete this topic RSV Immunizations Under 20 Months Aged Out No longer eligible based on patient's age to complete this topic Insurance AETNA Care Teams Costuming Supervisor Relationship Specialty Start Date End Date Zurdo Coyne PA [facility] [place] [id number] PCP - General PHYSICIAN MORTGAGE LOAN COORDINATOR 05/18/23
--- OUTSIDE RECORDS SUMMARY | 2025-05-27 11:07 | XMS_ITS | Encounter Summary ---
Author Organization [facility] Address [address] [place] [address] Care Team Providers Care Manager Oracle Name Role Phone Zurdo Coyne Primary Care Provider + Encounter Details Date Type Department Care Team (Late st Contact Info) Description 07/03/2023 [employer] Message Enc [place] [facility] [address] [place], [place] [phone] Ava Arango MD Three [facility]. [facility] [address], [place] [phone] Question regarding EVENT RECORDER (ECG) UP TO 30 DAYS COMPLETE Social History Tobacco Use Types Packs/Day Years Used Date Smoking Tobacco: Former Smokeless Tobacco: Never Alcohol Use Standard Drinks/Week [...] on file documented as of this encounter Visit Diagnoses Not on filedocumented in this encounter Care Teams Manager Oracle Relationship Specialty Start Date End Date Zurdo Coyne PA [address] [place] [address] PCP - General PHYSICIAN SALES SERVICE REPRESENTATIVE 05/18/23 documented as of this encounter
--- OUTSIDE RECORDS SUMMARY | 2025-05-27 11:07 | XMS_ITS | Clinical Summary ---
Author Organization [facility] Address [address] [place] [address] VANGIE Romero [address] Phone Care Team Providers Care Fabric Coating Supervisor Name Role Phone Donald Baker MD Primary Care Provider [phone] Allergies Active Allergy Reactions Criticality Noted Date Comments Amoxicillin Rash,Nausea and Vomiting Low 01/25/2017 Sulfa (Sulfonamide Antibiotics) Rash Low 01/18/2014 Medications pramipexole (MIRAPEX) 0.125 mg Tablet Take 0.125 mg by mouth. 06/29/2016 Active liothyronine (CYTOMEL) 50 mcg tablet TAKE 2 TABLETS IN AM AND 1 TABLET IN PM 04/25/2016 Active pantoprazole (PROTONIX) 40 mg Tablet, Delayed Release (E.C.) 40 mg. 12/18/2016 Active Active Problems Patient Care Coordination No te Formatting of this note migh t be different from the original. Primary Care: Donald Baker MD Referring Provider: [place] [address] [place] [address] Other: No known active problems Family History Medical History Relation Name Comments Cancer Father stomach & liver cx Heart Disease Father Lung Cancer Father Other Mother hypothyroidism Breast Cancer Other 1 matggma Breast Cancer Other 2 1stcouisnmat Relation Name Status Comments Father Mother Alive Other 1 matggma Other 2 1stcouisnmat Alive Social History Tobacco Use Types Packs/Day Years Used Date Smoking Tobacco: Former Alcohol Use Standard Drinks/Week Comments Yes 0 (1 standard drink = 0.6 oz pur e alcohol) socially Comments No Sex and Gender Information Value Date Recorded Sex Assigned at Not on file Legal Sex Female 12:32 PM CDT Gender Identity Not on file Sexual Orientation Not on file Last Filed Vital Signs Vital Sign Reading Time Taken Comments Blood Pressure 112/69 01/25/2017 9:25 AM CDT Pulse 105 01/25/2017 9:25 AM CDT Temperature 36.7 C (98.1 F) 01/18/2014 12:42 PM CDT Respiratory Rate 16 01/18/2014 12:42 PM CDT Oxygen Saturation 99% 01/18/2014 12:42 PM CDT Inhaled Oxygen Concentration - - Weight 69.9 kg (154 lb) 01/25/2017 9:25 AM CDT Height 160 cm (5' 3) 01/25/2017 9:25 AM CDT Body Mass Index 27.28 01/25/2017 9:25 AM CDT Plan of Treatment Health Maintenance Due Date Last Done Comments DTAP/TDAP/TD VACCINES (1 - Tdap) 1992 HEPATITIS B VACCINES (1 of 3 - 19+ 3-dose series) 1992 HPV/Cotest (21-29) 1994 CERVICAL CANCER SCREENING 2003 HPV/Cotest (30-65) 2003 PAP SMEAR 2003 BREAST CANCER SCREENING 11/10/2017 11/10/2016, 10/28 COLORECTAL SCREENING 2018 Colorectal Cancer Screening 2018 FIT-DNA Q 3 years 2018 FIT/FOBT Q 1 year 2018 Flex Sig/CT Colonography Q 5 years 2018 ZOSTER VACCINE (1 of 2) 2023 INFLUENZA VACCINE (#1) 2025 Procedures Procedure Name Priority Date/Time Associated Diagnosis Comments MAMMO DIAGNOSTIC BILATERAL W OR WO CAD Routine 11/10/2016 from Last 3 Months or Most Recently Relevant to Health Maintenance Results * MAMMO DIAGNOSTIC BILATERAL W OR WO CAD (11/10/2016) Anatomical Region Laterality Modality Breast Bilateral Mammography us Anh Luna DO MAMMO ORDERABLES Edited Result - Final from Last 3 Months or Most Recently Relevant to Health Maintenance Insurance BCBS BLUE ACCESS CHOICE Care Teams Fabric Coating Supervisor Relationship Specialty Start Date End Date Donald Baker MD [facility] [address] [place] [address] PCP - General Internal Medicine 01/17/17
== END 2025-05-27 10:15 | disposition home or self-care (01) ==
LOC: ANHFOHIMG 10:17
PROVIDERS: PCP Physician Assistant; Visit Provider Nurse Practitioner
DX: N63.10 Unspecified lump in the right breast, unspecified quadrant (principal); R92.8 Other abnormal and inconclusive findings on diagnostic imaging of breast
CPT/HCPCS: 77062; 77066; G0279

== ENCOUNTER 2025-08-05 15:12 | Outpatient (CLI) | payer OTHER, SELFPAY ==
[2025-08-05 16:10] LABS: Hematocrit 44.2 % (37.0-47.0); Hemoglobin 14.5 g/dL (12.0-15.0); Mean Corpuscular HGB Conc 32.8 g/dl (32-36); Mean Corpuscular Hemoglobin 30.7 pg (26-34); Mean Corpuscular Volume 93.6 fl (80-100); Platelet Count Result 314 k/mm3 (150-375); Red Blood Count 4.72 M/mm3 (4.2-5.4); White Blood Count 8.5 K/mm3 (4.5-10.0)
[2025-08-05 16:30] LABS: Albumin Level 4.7 g/dL (3.5-5.1); Anion Gap 10 mmol/L (4-12); Blood Urea Nitrogen 12 mg/dL (7-17); Calcium 9.2 mg/dL (8.4-10.2); Carbon Dioxide 28 mmol/L (22-30); Chloride 101 mmol/L (98-107); Estimated Glomerular Filt Rate 56; Glucose 101 mg/dL (65-110); Potassium 3.9 mmol/L (3.4-5.0); Sodium 139 mmol/L (137-145)
[2025-08-05 17:20] LABS: Iron 85 ug/dL (37-170)
[2025-08-05 17:30] LABS: Prealbumin 29.4 mg/dL (17.6-36.0)
[2025-08-05 17:50] LABS: Hemoglobin A1C 5.2 % (<5.7)
[2025-08-08 19:08] LABS: Vit. B1, Whole Blood 146.4 nmol/L (66.5-200.0)
== END 2025-08-05 15:13 | disposition home or self-care (01) ==
PROVIDERS: Visit Provider Surgery Plastic and Reconstructive Surgery
DX: R63.4 Abnormal weight loss (principal)
CPT/HCPCS: 36415; 80048; 82040; 83036; 83540; 84134; 84425; 85027

== ENCOUNTER 2025-08-19 15:40 | Outpatient (CLI) | payer BC, SELFPAY ==
--- OUTSIDE RECORDS SUMMARY | 2013-02-25 23:00 | XMS_ITS | Encounter Summary ---
Author Organization [facility] Healthcare Address [address] [place] [address] Care Team Providers Care Water And Sewer Systems Superintendent Name Role Phone Unavailable Primary Care Provider Unavailabl e Reason for Visit * Diagnostic Imaging (Routine) - Closed Specialty Diagnoses / Procedures Referred By Jose Cruz munguia Referred To Contact Procedures Breast Imaging US Outside Reference Krista Warren NP Phone: tel: fax: Referral ID Status Reason Start Date Expiration Date Visits Re quested Visits Authorized [id number] Closed 02/23/2022 03/25/2023 1 1 Encounter Details Date Type Department Care Team (Late st Contact Info) Description 02/26/[address] 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 Gender Identity Not on file Sexual Orientation Not on file documented as of this encounter Functional Status * Question Answer Date of Assessment Author MAP (mmHg) 95 01/12/2018 11:30 PM CDT Abigail Pitts, FLACO * Stone Fall Risk Question Answer Date of Assessment Author History of Falling 0 01/12/2018 9:26 PM Abigail Rutledge, FLACO Secondary Diagnosis 0 01/12/2018 9:26 PM CD T Abigail Hurtado, video player mechanic Aids 0 01/12/2018 9:26 PM CDT Abigail Villegas RN Intravenous Therapy/Heparin/Saline Lock 0 01/12/2018 9:26 PM CDT Larry Hurtado RN Gait/Transferring 0 01/12/2018 9:26 PM CDT Abigail Hurtado RN Mental Status 0 01/12/2018 9:26 PM CDT Abigail Pitts RN documented as of this encounter Mental Status * Question Answer Entry Date Author Other Neuro Symptoms Anxiety 01/12/2018 9:34 PM C DT Abigail Hurtado RN documented in this encounter Plan of Treatment Not on file documented as of this encounter Procedures Procedure Name Priority Date/Time Associated Diagnosis Comments BREAST IMAGING US OUTSIDE REFERENCE Routine 02/26/2013 12:00 AM CDT documented in this encounter Results * Breast Imaging US Outside Reference (02/26/2013 12:00 AM CDT) Impressions RAD[facility]MO[facility] - 02/23/2022 12:07 PM CDT These images are for Reference purposes only and have not been reviewed by [facility]. There will be no report generated by a [facility] Radiologist. Narrative [facility]_M[facility]MO[facility] - 02/23/2022 12:07 PM CDT EXAMINATION: Images For Reference Purposes Only us Krista Warren NP IMG MAMMO PROCEDURES Final Re sult RAD_MAMMO_[facility] documented in this encounter Visit Diagnoses Not on filedocumented in this encounter
--- OUTSIDE RECORDS SUMMARY | 2016-11-10 | XMS_ITS | Encounter Summary ---
Author Organization [facility] Healthcare Address [address] [place] [address] Care Team Providers Care Seo Team Lead Name Role Phone Unavailable Primary Care Provider Unavailabl e Reason for Visit * Diagnostic Imaging (Routine) - Closed Specialty Diagnoses / Procedures Referred By Jose Cruz munguia Referred To Contact Procedures Breast Imaging US Outside Reference Krista Warren NP Phone: tel: fax: Referral ID Status Reason Start Date Expiration Date Visits Re quested Visits Authorized [id number] Closed 02/23/2022 03/25/2023 1 1 Encounter Details Date Type Department Care Team (Late st Contact Info) Description 11/10/2016 Hospital Encounter [facility] Radiology [facility] [address] [place] [address] Social History Tobacco Use Types Packs/Day [...] on file Legal Sex Female 1:09 PM ADOLESCENT PSYCHIATRIST Gender Identity Not on file Sexual Orientation [...] 01/12/2018 9:26 PM CD T Abigail Hurtado, proof clerk Aids 0 01/12/2018 9:26 PM CDT Abigail [...] Comments BREAST IMAGING US OUTSIDE REFERENCE Routine 11/10/2016 12:00 AM ADOLESCENT PSYCHIATRIST documented in this encounter Results * Breast Imaging US Outside Reference (11/10/2016 12:00 AM ADOLESCENT PSYCHIATRIST) Impressions RAD_MAMMO_[facility] - 02/23/2022 12:07 PM CDT These images are for Reference purposes only and have not been reviewed by [facility]. There will be no report generated by a [facility] Radiologist. Narrative [facility] - 02/23/2022 12:07 PM CDT EXAMINATION: Images For Reference Purposes Only us Krista Warren ASSISTANT STRENGTH COACH IMG MAMMO PROCEDURES Final Re sult RAD_MAMMO_[facility] documented in this encounter Visit Diagnoses Not on filedocumented in this encounter
--- OUTSIDE RECORDS SUMMARY | 2016-11-13 | XMS_ITS | Encounter Summary ---
Author Organization [facility] Healthcare Address [address] [place] [address] Care Team Providers Care Electrical Logger Name Role Phone Unavailable Primary Care Provider Unavailabl e Reason for Visit * Diagnostic Imaging (Routine) - Closed Specialty Diagnoses / Procedures Referred By Jose Cruz munguia Referred To Contact Procedures Breast Imaging Diagnostic Outside Reference Krista Warren NP Phone: tel: fax: Referral ID Status Reason Start Date Expiration Date Visits Re quested Visits Authorized [id number] Closed 02/23/2022 03/25/2023 1 1 Encounter Details Date Type Department Care Team (Late st Contact Info) Description 11/13/2016 Hospital Encounter [facility]iology [facility] [address] [place] [address] Social History Tobacco Use Types Packs/Day [...] on file Legal Sex Female 1:09 PM DOUPER Gender Identity Not on file Sexual Orientation Not on file documented as of this encounter Functional Status * Question Answer Date of Assessment Author MAP (mmHg) 95 01/12/2018 11:30 PM CDT Abigail Pitts, FLACO * Stone Fall Risk Question Answer Date of Assessment Author History of Falling 0 01/12/2018 9:26 PM CDT Abigail Hurtado, FLACO Secondary Diagnosis 0 01/12/2018 9:26 PM CD T Abigail Hurtado, radio station operator Aids 0 01/12/2018 9:26 PM CDT Abigail Villegas RN Intravenous Therapy/Heparin/Saline Lock 0 01/12/2018 9:26 PM CDT Larry Hurtado RN Gait/Transferring 0 01/12/2018 9:26 PM CDT Abiagil Hurtado RN Mental Status 0 01/12/2018 9:26 PM CDT Abigail Pitts RN documented as of this encounter Mental Status * Question Answer Entry Date Author Other Neuro Symptoms Anxiety 01/12/2018 9:34 PM C DT Abigail Hurtado RN documented in this encounter Plan of Treatment Not on file documented as of this encounter Procedures Procedure Name Priority Date/Time Associated Diagnosis Comments BREAST IMAGING MG DIAGNOSTIC OUTSIDE REFERENCE Routine 11/13/2016 12:00 AM DOUPER documented in this encounter Results * Breast Imaging Diagnostic Outside Reference (11/13/2016 12:00 AM DOUPER) Impressions RAD_MAMMO_[facility] - 02/23/2022 12:06 PM CDT These images are for Reference purposes only and have not been reviewed by [facility]. There will be no report generated by a [facility] Radiologist. Narrative RAD_MAMMO[facility] - 02/23/2022 12:06 PM CDT EXAMINATION: Images For Reference Purposes Only us Krista Warren PLANT EQUIPMENT ENGINEER IMG MAMMO PROCEDURES Final Re sult RAD_MAMMO_[facility] documented in this encounter Visit Diagnoses Not on filedocumented in this encounter
--- OUTSIDE RECORDS SUMMARY | 2017-05-23 23:00 | XMS_ITS | Encounter Summary ---
Author Organization [facility] Healthcare Address [address] [place] [address] Care Team Providers Care Proposal Specialist Name Role Phone Unavailable Primary Care Provider Unavailabl e Reason for Visit * Diagnostic Imaging (Routine) - Closed Specialty Diagnoses / Procedures Referred By Jose Cruz munguia Referred To Contact Procedures Breast Imaging Diagnostic Outside Reference Krista Warren NP Phone: tel: fax: Referral ID Status Reason Start Date Expiration Date Visits Re quested Visits Authorized [id number] Closed 02/23/2022 03/25/2023 1 1 Encounter Details Date Type Department Care Team (Late st Contact Info) Description 05/24/2017 Hospital Encounter [facility]iology [facility] [address] [place] [address] Social History Tobacco Use Types Packs/Day [...] on file Legal Sex Female 1: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 Gender Identity Not on file Sexual Orientation Not on file documented as of this encounter Functional Status * Question Answer Date of Assessment Author MAP (mmHg) 95 01/12/2018 11:30 PM CDT Abigail Pitts, FLACO * Stoen Fall Risk Question Answer Date of Assessment Author History of Falling 0 01/12/2018 9:26 PM Abigail Rutledge, FLACO Secondary Diagnosis 0 01/12/2018 9:26 PM CD T Abigail Hurtado, sustainable products marketing manager Aids 0 01/12/2018 9:26 PM CDT Abigail [...] BREAST IMAGING MG DIAGNOSTIC OUTSIDE REFERENCE Routine 05/24/2017 12:00 AM CDT documented in this encounter Results * Breast Imaging Diagnostic Outside Reference (05/24/2017 12:00 AM CDT) Impressions RAD[facility] - 02/23/2022 12:05 PM CDT These images are for Reference purposes only and have not been reviewed by [facility]iology. There will be no report generated by a [facility] Radiologist. Narrative RAD_MAMMO_[facility] - 02/23/2022 12:05 PM CDT EXAMINATION: Images For Reference Purposes Only us Krista Warren NP IMG MAMMO PROCEDURES Final Re sult RAD_M[facility]MO[facility] documented in this encounter Visit Diagnoses Not on filedocumented in this encounter
--- OUTSIDE RECORDS SUMMARY | 2017-05-23 23:05 | XMS_ITS | Encounter Summary ---
Author Organization [facility] Healthcare Address [address] [place] [address] Care Team Providers Care Road Grader Name Role Phone Unavailable Primary Care Provider Unavailabl e Reason for Visit * Diagnostic Imaging (Routine) - Closed Specialty Diagnoses / Procedures Referred By Jose Cruz munguia Referred To Contact Procedures Breast Imaging US Outside Reference Krista Warren NP Phone: tel: fax: Referral ID Status Reason Start Date Expiration Date Visits Re quested Visits Authorized [id number] Closed 02/23/2022 03/25/2023 1 1 Encounter Details Date Type Department Care Team (Late st Contact Info) Description 05/24/2017 12:05 AM CDT Hospital Encounter [facility]iology [facility] [address] [place], [place] [id number] Social History Tobacco Use Types Packs/Day Years [...] on file Legal Sex Female 1:09 PM MEASUREMENT SPECIALIST Gender Identity Not on file Sexual Orientation Not on file documented as of this encounter Functional Status * Question Answer Date of Assessment Author MAP (mmHg) 95 01/12/2018 11:30 PM CDT Abigail Pitts, FLACO * Stone Fall Risk Question Answer Date of Assessment Author History of Falling 0 01/12/2018 9:26 PM CDT Abigail Hurtado RN Secondary Diagnosis 0 01/12/2018 9:26 PM CD T Abigail Hurtado RN Ambulatory Aids 0 01/12/2018 9:26 PM CDT Abigail [...] Comments BREAST IMAGING US OUTSIDE REFERENCE Routine 05/24/2017 12:05 AM CDT documented in this encounter Results * Breast Imaging US Outside Reference (05/24/2017 12:05 AM CDT) Impressions RAD[facility] - 02/23/2022 12:06 PM CDT These images are for Reference purposes only and have not been reviewed by [facility]. There will be no report generated by a [facility] Radiologist. Narrative RAD_MAMMO_[facility] - 02/23/2022 12:06 PM CDT EXAMINATION: Images For Reference Purposes Only us Krista Warren NP IMG MAMMO PROCEDURES Final Re sult RAD_M[facility]MO[facility] documented in this encounter Visit Diagnoses Not on filedocumented in this encounter
--- OUTSIDE RECORDS SUMMARY | 2017-12-12 23:00 | XMS_ITS | Encounter Summary ---
Author Organization [facility] Healthcare Address [address] [place] [address] Care Team Providers Care Brick Setter Name Role Phone Unavailable Primary Care Provider Unavailabl e Reason for Visit * Diagnostic Imaging (Routine) - Closed Specialty Diagnoses / Procedures Referred By Jose Cruz munguia Referred To Contact Procedures Breast Imaging Diagnostic Outside Reference Krista Warren NP Phone: tel: fax: Referral ID Status Reason Start Date Expiration Date Visits Re quested Visits Authorized [id number] Closed 02/23/2022 03/25/2023 1 1 Encounter Details Date Type Department Care Team (Late st Contact Info) Description 12/13/2017 Hospital Encounter [facility] [address] [place] [address] Social History Tobacco Use Types Packs/Day [...] on file Legal Sex Female 1:09 PM DIRECTOR OF CRITICAL CARE Gender Identity Not on file Sexual Orientation [...] 01/12/2018 9:26 PM CD T Abigail Hurtado, utilization manager Aids 0 01/12/2018 9:26 PM CDT [...] BREAST IMAGING MG DIAGNOSTIC OUTSIDE REFERENCE Routine 12/13/2017 12:00 AM CDT documented in this encounter Results * Breast Imaging Diagnostic Outside Reference (12/13/2017 12:00 AM CDT) Impressions RAD_M[facility]MO[facility] - 02/23/2022 12:05 PM CDT These images are for Reference purposes only and have not been reviewed by [facility] Radiology. There will be no report generated by a [facility] Radiologist. Narrative RAD_MAMMO_[facility] - 02/23/2022 12:05 PM CDT EXAMINATION: Images For Reference Purposes Only us Krista Warren NP IMG MAMMO PROCEDURES Final Re sult RAD_M[facility]MO[facility] documented in this encounter Visit Diagnoses Not on filedocumented in this encounter
--- OUTSIDE RECORDS SUMMARY | 2018-07-16 23:00 | XMS_ITS | Encounter Summary ---
Author Organization [facility] Healthcare Address [address] [place] [address] Care Team Providers Care Boiler Welder Name Role Phone No, Physician Primary Care Provider [phone] Reason for Visit * Diagnostic Imaging (Routine) - Closed Specialty Diagnoses / Procedures Referred By Jose Cruz munguia Referred To Contact Procedures Breast Imaging Diagnostic Outside Reference Krista Warren NP Phone: tel: fax: Referral ID Status Reason Start Date Expiration Date Visits Re quested Visits Authorized [id number] Closed 02/23/2022 03/25/2023 1 1 Encounter Details Date Type Department Care Team (Late st Contact Info) Description 07/17/2018 Hospital Encounter [facility] [address] [place] [address] Social History Tobacco Use Types Packs/Day [...] on file Legal Sex Female 1:09 PM AUTOMATIC 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 Radiology. There will be no report generated by a [facility] Radiologist. Narrative [facility] - 02/23/2022 12:04 PM CDT EXAMINATION: Images For Reference Purposes Only us Krista Warren NP IMG MAMMO PROCEDURES Final Re sult [facility] documented in this encounter Visit Diagnoses Not on filedocumented in this encounter Care Teams Boiler Welder Relationship Specialty Start Date End Date No, Physician PCP - General 01/12/18 01/29/22 documented as of this encounter
--- OUTSIDE RECORDS SUMMARY | 2019-10-24 | XMS_ITS | Encounter Summary ---
Author Organization [facility] Healthcare Address [address] [place] [address] Care Team Providers Care Catalog Library Assistant Name Role Phone No, Physician Primary Care Provider [phone] Reason for Visit * Diagnostic Imaging (Routine) - Closed Specialty Diagnoses / Procedures Referred By Jose Cruz munguia Referred To Contact Procedures Breast Imaging Diagnostic Outside Reference Krista Warren NP Phone: tel: fax: Referral ID Status Reason Start Date Expiration Date Visits Re quested Visits Authorized [id number] Closed 02/23/2022 03/25/2023 1 1 Encounter Details Date Type Department Care Team (Late st Contact Info) Description 10/24/2019 Hospital Encounter [facility] Radiology [facility] [address] [place] [address] Social History Tobacco Use Types [...] on file 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 Gender Identity Not on file Sexual Orientation Not on file documented as of this encounter Functional Status documented as of this encounter Plan of Treatment Not on file documented as of this encounter Procedures Procedure Name Priority Date/Time Associated Diagnosis Comments BREAST IMAGING MG DIAGNOSTIC OUTSIDE REFERENCE Routine 10/24/2019 12:00 AM FUEL VERIFICATION TECHNICIAN documented in this encounter Results * Breast Imaging Diagnostic Outside Reference (10/24/2019 12:00 AM FUEL VERIFICATION TECHNICIAN) Impressions [facility] - 02/23/2022 12:04 PM CDT These images are for Reference purposes only and have not been reviewed by [facility] Radiology. There will be no report generated by a [facility] Radiologist. Narrative [facility] - 02/23/2022 12:04 PM CDT EXAMINATION: Images For Reference Purposes Only us Krista Warren PURCHASING MANAGER/SALES IMG MAMMO PROCEDURES Final Re sult [facility] documented in this encounter Visit Diagnoses Not on filedocumented in this encounter Care Teams Catalog Library Assistant Relationship Specialty Start Date End Date No, Physician PCP - General 01/12/18 01/29/22 documented as of this encounter
--- NOTE | 2025-08-19 | ECG_ITS ---
Test Date: 2025-08-19 16:11:36 Measurements Intervals [place] Rate: 79 P: 56 CO: 139 QRS: 79 QRSD: 85 T: 55 QT: 361 QTc: 414 Interpretive Statements SINUS RHYTHM NORMAL ECG No previous ECG available for comparison Electronically Signed On 08-19-2025 19:27:17 BELLHOP CAPTAIN by Jeanmarie Waterman D.O.
--- OUTSIDE RECORDS SUMMARY | 2025-08-19 16:50 | XMS_ITS | Patient Health Record ---
Author Organization [facility] Address [address] [place] [address] Care Team Providers Care Ex Assistant/Program Director Name Role Phone Joseph Celaya Primary Care Provider [phone] Allergies Allergen (clinical drug ingredient) Drug/Non Drug [...] Insured Coverage Start Date Coverage End Date [facility] [address] [place] [id number] Jovana Henry Self - patient is the insured Medications Administered Medication Instructions Date of Administration Dosage Notes Celestone (1 cc) 6mg 09/15/2021 1 mL Medical (General) History Surgical History Surgery Date(Month/Year)
--- OUTSIDE RECORDS SUMMARY | 2025-08-19 16:50 | XMS_ITS | Encounter Summary ---
Author Organization [facility] Address [address] [place] [address] Care Team Providers Care Postal Sorting Officer Name Role Phone Zurdo Coyne Primary Care Provider + Encounter Details Date Type Department Care Team (Late st Contact Info) Description 07/03/2023 CPower Message Enc [place] [facility], [facility] [address] [place], [place] [phone] Ava Arango MD Three [facility]. [facility] [address] [place], [place] [phone] Question regarding EVENT RECORDER (ECG) UP TO [...] on filedocumented in this encounter Care Teams Postal Sorting Officer Relationship Specialty Start Date End Date Zurdo Coyne PA [address] [address] PCP - General PHYSICIAN TRAFFIC MAINTENANCE OFFICER 05/18/23 documented as of this encounter
--- OUTSIDE RECORDS SUMMARY | 2025-08-19 16:50 | XMS_ITS | Clinical Summary ---
Author Organization [facility] Address [address] [place] [address] Care Team Providers Care Painting Technician Name Role Phone Abida Mao YEAST FERMENTATION ATTENDANT Unavailable [phone] No, Physician Primary Care Provider [phone] Allergies Active Allergy Reactions Criticality Noted Date [...] 02/07/2016 Overview (04/25/2024): Dose recently adjusted by vertical punch operator, doing well Last Assessment & Plan: Continue current medication. 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
--- OUTSIDE RECORDS SUMMARY | 2025-08-19 16:50 | XMS_ITS | Data Portability ---
Author Organization [facility] Address [address] [place] [address] [place] [address] Care Team Providers Care Continuous Miner Name Role Phone POLA JACKSON Primary Care Provider [phone] Assessment Encounter Date Assessment Date Assessment LastModified by Organization Details LastModified Time 12/27/2023 12/27/2023 Annual gynecological exam performed. Patient will come back in a year unless there are new symptoms. [email or web address] Not available 12/26/2023 10:30:02 04/24/2025 04/24/2025 Annual gynecological exam performed. Patient will come back in a year unless there are new symptoms. isa Not available 04/24/2025 09:54:12 Plan of Treatment Reminders Order Date Submit Date Provider Last Modified By Organization Details Last Modified Time Details Appointments None recorded. Lab culture, urine 2024 025 [facility] (Lab), [address], [place], [address], 23:49:15 urinalysis, dipstick 2024 025 [email or web address] [facility], [address], [place], [address], 13:57:33 unlisted lab - women's health swab, MARINO 2024 025 [facility] (Lab), [address], [place], [address], 5 15:33:11 urinalysis, dipstick 2024 025 [email or web address] [facility], [address], [address], [place], [address], 5 12:35:50 Referral None recorded. Procedures None recorded. Surgeries None recorded. Imaging MAMMO, diagnostic, digital, bilateral - Bilateral breast lumps in outer quadrants and around 12 oclock [address], [address], [place], [address], 5 17:46:15 US, breast, bilateral 2024 025 [facility], [address], [place], [address], 5 04:14:21 MAMMO, screening, digital, bilateral [address], [address], [place], [address], 5 11:10:15 MAMMO, diagnostic, digital, bilateral 2023 024 [facility], [address], [place], [address], 4 05:01:27 US, breast, unilateral - left breast lump, around 1 oclock in outer quadrant 2023 024 [facility], [address], [place], [address], 4 05:01:27 Medication Orders Macrobid 100 mg capsule 2024 025 [place] [facility], [address] [place] [address], [address], 5 05:01:22 estradiol 0.01% (0.1 mg/gram) vaginal cream 2024 025 [facility] #3259, [address] [place] [address], [address], 5 10:30:41 progesteron e micronized 100 mg capsule 2024 025 [facility] [address] [place] [address], [address], 5 10:31:00 Macrobid 100 mg capsule 2024 025 [facility] [address] [place] [address], [address], 5 05:01:22 progesteron e micronized 100 mg capsule 2024 025 [place] [facility], [address] [place] [address], [address], 5 14:25:14 metronidazo le 500 mg tablet 2024 025 [facility] [address] [place] [address], [address], 5 09:54:59 Macrobid 100 mg capsule 2024 025 [facility] #3259, [address] [place] [address], [address], 5 05:01:22 Cipro 500 mg tablet 2023 025 [facility] #3259, [address] [place] [address], [address], 5 12:36:07 oxybutynin chloride ER 5 mg tablet,exte nded release 24 hr 2023 025 [facility] #1417, [address] [place], [address], 12:53:03 Patient TargetsNo targets recorded. Patient InstructionsNo instructions recorded. Reason for Referral None Reported. Results Created Date Observation Date Name Description Value Unit Range Abnormal Flag Note LastModifiedBy Organization Detail LastModifiedTime 05/09/20 24 05/09/2024 CULTU RE: URINE result report SEE RESULT S BELOW Test: Cultu re: Urine Speci men Sourc e: Urine - Clean Catch Speci men Type: Urine Speci men Date: 2023 1308 Resul t Date: 2023 0603 Resul t Statu s: Final resul t Abnor mal: No Resul ting Lab: [facility] [address] [facility] [place] [address] Tel: CULTU RE ----- ----- ----- --- No growt h in 1 day (dete ction level of 10,00 0 colon ies / ml.) Not Available [facility] (Lab) [address] [facility], [place], [address], 05/11/2024 07:06:03 11/13/19 25 11/13/2024 CULTU RE: URINE result report SEE RESULT S BELOW abnormal Test: Cultu re: Urine Speci men Sourc e: Urine - Clean Catch Speci men Type: Urine Speci men Date: 2024 1148 Resul t Date: 0652 Resul t Statu s: Final resul t Abnor mal: Yes Resul ting Lab: [facility] [address] [facility] [place] [address] Tel: CULTU RE ----- ----- ----- --- >100, 000 CFU/m l [place]sche [place] a coli (Abno rmal) SUSCE PTIBI LITY ----- ----- ----- --- [place] a coli METHO D JESUS ----- ----- ----- ----- ----- ---- ----- ----- ----- ----- ----- AMPIC ILLIN <=8 ug/mL Susce ptibl e AMPIC ILLIN /SULB ACTAM <=4 ug/mL Susce ptibl e AZTRE ONAM <=4 ug/mL Susce ptibl e CEFAZ BENITA <=2 ug/mL Susce ptibl e CEFEP CARLOS <=2 ug/mL Susce ptibl e CEFTA ZIDIM E <=1 ug/mL Susce ptibl e CEFTR IAXON E <=1 ug/mL Susce ptibl e CIPRO FLOXA MOMO <=0.2 5 ug/mL Susce ptibl e GENTA MICIN <=2 ug/mL Susce ptibl e LEVOF LOXAC IN <= 0.5 ug/mL Susce ptibl e MEROP ENEM <=1 ug/mL Susce ptibl e NITRO FURAN TOIN <=32 ug/mL Susce ptibl e PIPER ACILL IN/TA ZOBAC HE <=8 ug/mL Susce ptibl e TOBRA MYCIN <=2 ug/mL Susce ptibl e TRIME THOPR IM/MOURA LFAME THOXA ZOLE <=0.5 ug/mL Susce ptibl e Not Available [facility] (Lab) [address], [place], [address], 11/16/2024 07:54:35 11/13/1911/13/2024 urina lysis , dipst ick Leukocytes POSITI VE Not Available [facility] [address], [place], [address], 11/13/2024 12:32:50 11/13/19 25 11/13/2024 urina lysis , dipst ick Nitrite POSITI VE Not Available [facility] [address], [place], [address], 11/13/2024 12:32:50 11/13/19 25 11/13/2024 urina lysis , dipst ick Urobilinogen 1 Not Available [facility] [address], [place], [address], 11/13/2024 12:32:50 11/13/19 25 11/13/2024 urina lysis , dipst ick Protein POSITI VE Not Available [facility] [address], [place], [address], 11/13/2024 12:32:50 11/13/19 25 11/13/2024 urina lysis , dipst ick pH 5 Not Available [facility] [address], [place], [address], 11/13/2024 12:32:50 11/13/19 25 11/13/2024 urina lysis , dipst ick Blood +++ Not Available [facility] [address], [place], [address], 11/13/2024 12:32:50 11/13/19 25 11/13/2024 urina lysis , dipst ick Specific Toivola 1.005 Not Available [facility] [address], [place], [address], 11/13/2024 12:32:50 11/13/19 25 11/13/2024 urina lysis , dipst ick Ketone NEGATI VE Not Available [facility] [address], [place], [address], 11/13/2024 12:32:50 11/13/19 25 11/13/2024 urina lysis , dipst ick Bilirubin POSITI VE Not Available [facility] [address], [place], [address], 11/13/2024 12:32:50 11/13/19 25 11/13/2024 urina lysis , dipst ick Glucose NEGATI VE Not Available [facility] [address], [place], [address], 11/13/2024 12:32:50 11/13/19 25 11/13/2024 urina lysis , dipst ick Appearance CLOUDY Not Available [facility] [address], [place], [address], 11/13/2024 12:32:50 11/13/19 25 11/13/2024 urina lysis , dipst ick Color ORANGE Not Available [facility] [address], [place], [address], 11/13/2024 12:32:50 02/24/20 25 02/23/2025 WOMEN 'S HEALT H SWAB, MARINO raine species, tma Negati ve negati ve Not Available [facility] (Lab) [address] [facility], [place], [address], 02/24/2025 15:33:11 02/24/20 25 02/23/2025 WOMEN 'S HEALT H SWAB, MARINO raine glabrata, tma Negati ve negati ve Not Available [facility] (Lab) [address] [place], [address], 02/24/2025 15:33:11 02/24/20 25 02/23/2025 WOMEN 'S HEALT H SWAB, MARINO trichomonas vaginalis, tma Negati ve negati ve This assay tests for and diffe renti ates betwe en Coby da glabr roman, the Coby da speci es group (C. albic ans, C. tropi calis , C. parap maximino is, C. dubli niens is), and Trich omona s vagin loco by Trans cript ion-M ediat ed Ampli ficat ion (TMA) . Not Available [facility] (Lab) [address] , [place], [address], 02/24/2025 15:33:11 06/0902/23/2025 WOMEN 'S HEALT H SWAB, MARINO bacterial vaginosis (bv), tma Positi ve negati ve abnormal This test detec ts ribos omal RNA from bacte miguel assoc iated with bacte rial vagin osis (BV), inclu ding Lacto bacil david (L. gasse ri, L. crisp atus and L. jense malathi), Gardn erell a vagin loco, and Atopo bium vagin ae by Trans cript ion-M ediat ed Ampli ficat ion (TMA) . A singl e quali tativ e resul t is repor farshad based on instr ument softw are to deter mine BV posit ronnell or negat ronnell statu s. Not Available [facility] (Lab) [address] [facility], [place], [address], 02/24/2025 15:33:11 04/24/20 25 04/24/2025 CULTU RE: URINE result report SEE RESULT S BELOW abnormal Test: Cultu re: Urine Speci men Sourc e: Urine Voide d Speci men Type: Urine Speci men Date: 025 1346 Resul t Date: 2024 2246 Resul t Statu s: Final resul t Johnor mal: Yes Evangelista mendoza Lab: [facility] [address] [facility] [address] Tel: CULTU RE ----- ----- ----- --- >100, 000 CFU/m l Klebs iella pneum oniae (Abno rmal) SUSCE PTIBI LITY ----- ----- ----- --- Klebs iella pneum oniae METHO D JESUS ----- ----- ----- ----- ----- ---- ----- ----- ----- ----- ----- AMPIC ILLIN /SULB ACTAM <=8 ug/mL Susce ptibl e AZTRE ONAM <=4 ug/mL Susce ptibl e CEFAZ BENITA <=2 ug/mL Susce ptibl e CEFEP CARLOS <=2 ug/mL Susce ptibl e CEFTA ZIDIM E <=1 ug/mL Susce ptibl e CEFTR IAXON E <=1 ug/mL Susce ptibl e CIPRO FLOXA MOMO <=0.2 5 ug/mL Susce ptibl e GENTA MICIN <=2 ug/mL Susce ptibl e LEVOF LOXAC IN <=0.5 ug/mL Susce ptibl e MEROP ENEM <=1 ug/mL Susce ptibl e NITRO FURAN TOIN >64 ug/mL Resis tant PIPER ACILL IN/TA ZOBAC HE <=8 ug/mL Susce ptibl e TOBRA MYCIN <=2 ug/mL Susce ptibl e TRIME THOPR IM/MOURA LFAME THOXA ZOLE <=2 ug/mL Susce ptibl e Not Available [facility] (Lab) [address], [place], [address], 04/26/2025 23:49:14 04/24/20 25 04/24/2025 urina lysis , dipst ick Leukocytes ++ Not Available [facility] [address], [place], [address], 04/24/2025 13:56:50 04/24/20 25 04/24/2025 urina lysis , dipst ick Nitrite + Not Available [facility] [address], [place], [address], 04/24/2025 13:56:50 04/24/20 25 04/24/2025 urina lysis , dipst ick Urobilinogen Normal Not Available [facility] [address], [place], [address], 04/24/2025 13:56:50 04/24/20 25 04/24/2025 urina lysis , dipst ick Protein Tr Not Available [facility] [address], [place], [address], 04/24/2025 13:56:50 04/24/20 25 04/24/2025 urina lysis , dipst ick pH 6 Not Available [facility] [address], [place], [address], 04/24/2025 13:56:50 04/24/20 25 04/24/2025 urina lysis , dipst ick Specific Toivola 1.010 Not Available [facility] [address], [place], [address], 04/24/2025 13:56:50 04/24/20 25 04/24/2025 urina lysis , dipst ick Ketone - Not Available [facility] [address], [place], [address], 04/24/2025 13:56:50 04/24/20 25 04/24/2025 urina lysis , dipst ick Bilirubin - Not Available [facility]ed [address], [place], [address], 04/24/2025 13:56:50 04/24/20 25 04/24/2025 urina lysis , dipst ick Glucose Normal Not Available [facility] [address], [place], [address], 04/24/2025 13:56:50 04/24/20 25 04/24/2025 urina lysis , dipst ick Appearance Cloudy Not Available [facility] [address], [place], [address], 04/24/2025 13:56:50 04/24/20 25 04/24/2025 urina lysis , dipst ick Color yellow Not Available [facility] [address], [place], [address], 04/24/2025 13:56:50 0905/27/2025 MAMMO , diagn ostic , digit al, bilat eral No observ ation record ed. [email or web address] [facility] [address] [address], [place], [address], 05/29/2025 13:02:32 Result Notes None recorded. Procedures Surgical History Date Name Laterality Status Provider Name and Address Organization Details Recorded Time 022 Date of Last Colonoscopy completed [facility] 12/08/2022 16:00:15 022 completed [facility] 12/08/2022 16:00:15 020 Date of Last Pap Smear completed [facility] 11/18/2021 10:20:42 Other completed [facility] 11/18/2021 10:20:53 Colonoscopy completed [facility] 11/18/2021 10:20:53 tonsilectomy/adeno ids completed [facility] 11/18/2021 10:20:53 Breast Implants completed [facility] 11/18/2021 10:20:53 Hysteroscopy completed PAIGE Weiner [address], [place], [address], [facility] 12/27/2023 10:44:07 Cholecystectomy completed PAIGE Singh [address], [place], [address], [facility] 12/27/2023 10:44:13 Imaging Results None recorded. Procedure Notes None recorded. Medical Equipment None Reported. Allergies Allergen ID Allergen Name Allergen Category Reaction Reaction Severity Criticality Documentation Date Start Date Code Code System Note Provider Name and Address Organization Details Recorded Time 00314 Unable to Assess Not available Not available Not available Not available 11/18/2021 Shaina Lozano [facility] 2 10:21:10 87116 amoxicill in medicatio n Not available Not available Not available 11/18/2021 723 RxNorm Shaina Lozano [facility] 2 10:21:07 94349 Substance with sulfonami de structure and antibacte rial mechanism of action (substanc e) medicatio n abdominal pain Not available Not available 11/18/2021 [address]1105 [address] [facility] 2 10:22:03 93749 Macrobid medicatio n Not available Not available Not available 05/09/2024 58557 1 RxNorm MARTINEZ Romero [facility] 5 12:25:35 95494 ethanol food,medi cation itching Not available high 08/10/20252015 448 RxNorm Not Available jeanne - External Data Service - prod 5 09:06:24 91003 ciproflox acin medicatio n Not available Not available low 08/10/20252018 2551 RxNorm unrec ogniz ed react ion (text : Stoma ch upset , code: 46375 9005) (from exter nal sourc e) Not Available jeanne - External Data Service - prod 5 09:06:24 52691 morphine medicatio n hallucina tions Not available high 08/10/20252020 7052 RxNorm Not Available jeanne - External Data Service - prod 5 09:06:24 91521 Product containin g penicilli n (product) medicatio n diarrhea itching rash Not available Not available Not available high 08/10/20252015 26475 8001 SNOMED unrec ogniz ed react ion (text : Stoma ch upset , code: 08145 9005) (from exter nal sourc e) unrec ogniz ed react ion (text : Nause a And Vomit ing, code: 09059 000) ([facility] Not Available jeanne - External Data Service - prod 09:06:24 54442 prednison e medicatio n rash Not available [facility] 08/10/20252017 8640 RxNorm Not Available ama - External Data Service - prod 09:06:24 Medications Name Sig Start Date Stop Date Status Note LastModified by Organization Details LastModified Time Hydromet 5 mg-1.5 mg/5 mL oral solution TAKE 5 ML BY MOUTH EVERY 6 HOURS NEEDED 12/08 completed Not Available Not Available Not Available medroxyprog esterone 10 mg tablet TAKE 1 TABLET BY MOUTH EVERY DAY IN THE EVENING FOR 30 DAYS 02/23 completed Not Available Not Available Not Available metformin 500 mg tablet TAKE 1 TO 2 TWICE A DAY WITH FOOD 02/23 completed Not Available Not Available Not Available promethazin e-DM 6.25 mg-15 mg/5 mL oral syrup TAKE 5 ML EVERY 4 HOURS BY ORAL ROUTE FOR 10 DAYS. 12/25 completed Not Available Not Available Not Available nitrofurant oin macrocrysta l 50 mg capsule TAKE 1 CAPSULE BY MOUTH EVERY DAY 12/08 completed Not Available Not Available Not Available doxycycline hyclate 100 mg capsule TAKE 1 CAPSULE BY MOUTH TWICE A DAY X7 DAYS 12/08 completed Not Available Not Available Not Available clindamycin HCl 300 mg capsule TAKE 1 CAPSULE BY MOUTH FOUR TIMES A DAY UNTIL FINISHED 12/08 completed Not Available Not Available Not Available trazodone 50 mg tablet active Not Available Not Available Not Available atorvastati n 10 mg tablet TAKE 1 TABLET BY MOUTH EVERY DAY active Not Available Not Available No t Available azithromyci n 250 mg tablet TAKE 2 TABLETS BY MOUTH TODAY, THEN TAKE 1 TABLET DAILY FOR 4 DAYS 12/08 completed Not Available Not Available Not Available metoprolol succinate ER 50 mg tablet,exte nded release 24 hr TAKE 1 TABLET BY MOUTH EVERY DAY FOR HEART RATE CONTROL 02/23 completed Not Available Not Available Not Available fluconazole 200 mg tablet TAKE 1 TABLET EVERY OTHER DAY X 3 DOSES. 12/08 completed Not Available Not Available Not Available sucralfate 1 gram tablet TAKE 1 (ONE) TABLET BY MOUTH 4 TIMES DAILY - BEFORE MEALS & NIGHTLY 02/23 completed Not Available Not Available Not Available prednisone 20 mg tablet TAKE 2 TABLETS BY MOUTH EVERY DAY FOR 5 DAYS 12/08 completed Not Available Not Available Not Available Synthroid 100 mcg tablet TAKE ONE TABLET (100MCG)B Y MOUTH DAILY SKIP SUNDAYS active Not Available Not Available No t Available medroxyprog esterone 5 mg tablet 12/26 completed Not Available Not Available Not Available metronidazo le 500 mg tablet TAKE 1 TABLET BY MOUTH EVERY 12 HOURS FOR 7 DAYS 04/24 completed Not Available Not Available Not Available ciprofloxac in 250 mg tablet Take 1 tablet every 12 hours by oral route for 3 days. 05/07 completed Not Available Not Available Not Available ciprofloxac in 500 mg tablet TAKE 1 TABLET BY MOUTH EVERY 12 HOURS 11/13 completed Not Available Not Available Not Available liothyronin e 5 mcg tablet TAKE 1 TABLET (5MCG) BY MOUTH DAILY IN THE MORNING AND 1 TABLET (5MCG) DAILY IN THE EVENING. active Not Available Not Available No t Available Macrobid 100 mg capsule Take 1 capsule every 12 hours by oral route for 7 days. 05/08 completed Not Available Not Available Not Available oxycodone-a cetaminophe n 5 mg-325 mg tablet TAKE 1 TABLET BY MOUTH EVERY 6 HOURS NEEDED FOR PAIN 02/23 completed Not Available Not Available Not Available phenazopyri dine 100 mg tablet TAKE 1 TABLET BY MOUTH 3 TIMES A DAY FOR 2 DAYS. 12/08 completed Not Available Not Available Not Available benzonatate 100 mg capsule TAKE 1 CAPSULE BY MOUTH EVERY 8 HOURS NEEDED 12/08 completed Not Available Not Available Not Available pantoprazol e 40 mg tablet,debbi yed release TAKE 1 (ONE) TABLET BY MOUTH 2 TIMES DAILY active Not Available Not Available No t Available metformin 1,000 mg tablet 02/23 completed Not Available Not Available Not Available liothyronin e 50 mcg tablet 12/26 completed Not Available Not Available Not Available pramipexole 0.125 mg tablet TAKE 1 TABLET BY MOUTH EVERYDAY AT BEDTIME active Not Available Not Available No t Available oxybutynin chloride ER 5 mg tablet,exte nded release 24 hr TAKE 1 TABLET BY MOUTH EVERY DAY 02/23 completed Not Available Not Available Not Available hydroxyzine HCl 25 mg tablet TAKE 1 TABLET BY MOUTH EVERY 6 HOURS NEEDED 12/08 completed Not Available Not Available Not Available codeine 10 mg-guaifene sin 100 mg/5 mL oral liquid TAKE 10 MILLILITE RS BY ORAL ROUTE EVERY 6 HOURS NEEDED NEEDED FOR FLU SYMPTOMS 12/08 completed Not Available Not Available Not Available epinephrine 0.3 mg/0.3 mL injection, auto-inject or INJECT INTRAMUSC ULARLY NEEDED FOR ALLERGIC REACTION. MAY REPEAT 1 TIME active Not Available Not Available No t Available levofloxaci n 500 mg tablet 11/18 completed Not Available Not Available Not Available estradiol 0.01% (0.1 mg/gram) vaginal cream APPLY 1 GRAM VAGINALLY AT BEDTIME 2-3 TIMES PER WEEK active Not Available Not Available No t Available methylpredn isolone 4 mg tablets in a dose pack DIRECTED 12/08 completed Not Available Not Available Not Available albuterol sulfate HFA 90 mcg/actuati on aerosol inhaler INHALE 2 PUFFS BY MOUTH EVERY 4 HOURS NEEDED active Not Available Not Available No t Available doxycycline hyclate 100 mg tablet TAKE 1 TABLET BY MOUTH TWICE DAILY FOR 10 DAYS 11/18 completed Not Available Not Available Not Available dicyclomine 10 mg capsule 12/08 completed Not Available Not Available Not Available progesteron e micronized 100 mg capsule TAKE 1 CAPSULE DAILY 2024 active Not Available Not Available Not Avai lable DentaGel 1.1 % USE PEA SIZE AMOUNT DAILY, BRUSH FOR TWO MINUTES, RINSE AND SPIT, DO NOT SWALLOW 12/08 completed Not Available Not Available Not Available Vyvanse 30 mg capsule TAKE 1 CAPSULE BY MOUTH EVERY DAY 12/08 completed Not Available Not Available Not Available sodium,pota ssium,mag sulfates 17.5 gram-3.13 gram-1.6 gram oral soln TAKE 354 ML BY MOUTH ONCE FOR 1 DOSE TAKE DIRECTED PER BOWEL PREP INSTRUCTI ONS 02/23 completed Not Available Not Available Not Available Corlanor 5 mg tablet TAKE 1 TABLET BY MOUTH 2 TIMES DAILY WITH MEALS. 12/26 completed Not Available Not Available Not Available M-Dryl 12.5 mg/5 mL oral liquid 12/08 completed Not Available Not Available Not Available Mounjaro 7.5 mg/0.5 mL subcutaneou s pen injector INJECT 7.5 MG (0.5 ML) SUBCUTANE OUSLY WEEKLY active Not Available Not Available No t Available Mounjaro 5 mg/0.5 mL subcutaneou s pen injector 12/08 completed Not Available Not Available Not Available Vitals Date Recorded Body height Body mass index (BMI) Body weight Systolic And Diastolic Provider Name and Address Organization Details Last Updated DateTime 11/13/2024 157.48 cm 23.8 kg/m2 04157.01 g 129/79 mm[Hg] MARTINEZ Heather [facility] 11/13/2024 12:24:55 Date Recorded Body height Body mass index (BMI) Body weight Systolic And Diastolic Provider Name and Address Organization Details Last Updated DateTime 12/27/2023 157.48 cm 24.1 kg/m2 80818.19 g 117/82 mm[Hg] Renee Matamoros [facility] 12/27/2023 10:29:26 Date Recorded Body height Provider Name an d Address Organization Details Last Updated DateTime 02/23/2025 157.48 cm Melanie Tai [facility] 02/23/2025 12:44:40 Date Recorded Body height Body mass index (BMI) Body weight Systolic And Diastolic Provider Name and Address Organization Details Last Updated DateTime 04/24/2025 157.48 cm 23.2 kg/m2 07087.23 g 108/75 mm[Hg] Kristiefloridalma Odonnellney [facility] 04/24/2025 09:54:45 Date Recorded Body height Body mass index (BMI) Body weight Systolic And Diastolic Provider Name and Address Organization Details Last Updated DateTime 05/09/2024 157.48 cm 23.6 kg/m2 23374.42 g 116/82 mm[Hg] Manisha Garcia [facility] 05/09/2024 11:37:58 Social History Question Answer Notes LastModified by Organizat ion Details LastModified Time Tobacco Smoking Status Current Every Day Smoker Nina Rajesh [facility] 12/08/2022 16:00:19 Do You Have An Advance Directive? No Information n ot available 11/18/2021 How Many Years Have You Consumed Alcohol? 33 Information not available 11/18/2021 Are You Blind Or Do You Have Difficulty Seeing? No Information n ot available 11/18/2021 What Is Your Level Of Caffeine Consumption? Heavy Information not available 11/18/2021 How Much Tobacco Do You Chew? None Information not available 11/18/2021 In The 14 Days Before Symptom Onset, Have You Had Close Contact With A Laboratory-confirm ed COVID-19 While That Case Was Ill? No Information n ot available 11/18/2021 In The 14 Days Before Symptom Onset, Have You Had Close Contact With A Person Who Is Under Investigation For COVID-19 While That Person Was Ill? No Information not available 11/18/2021 Have You Been To An Area Known To Be High Risk For COVID-19? No Information not available 11/18/2021 Are You Deaf Or Do You Have Serious Difficulty Hearing? No Information not available 11/18/2021 What Type Of Diet Are You Following? REGULAR Information n ot available 11/18/2021 What Is The Highest Grade Or Level Of School You Have Completed Or The Highest Degree You Have Received? [id number] Information not available 11/18/2021 Are There Any Guns Present In Your Home? Yes Information not available 11/18/2021 Do You Use Protection During Sex? Usually Information not available 11/18/2021 Do You Use Your Seat Belt Or Car Seat Routinely? Yes Information not available 11/18/2021 Do You Have Smoke And Carbon Monoxide Detectors In Your Home? Yes Information not available 11/18/2021 At What Age Did You Start Smoking Tobacco? 14 Information not available 11/18/2021 How Much Tobacco Do You Smoke? No ran Information not available 12/08/2022 Do You Use Sunscreen Routinely? Yes Information not available 11/18/2021 How Many Years Have You Smoked Tobacco? 6 Information not available 11/18/2021 Have You Used IV Drugs? No Information not available 11/18/2021 Do You Have Difficulty Walking Or Climbing Stairs? No Information not available 12/08/2022 Sex: Unknown Functional Status Question Answer Note LastModified by Organizat ion Details LastModified Time Do you use any illicit or recreational drugs? No Information not available 11/18/2021 What is your level of alcohol consumption? None [email or web address] Information not available 02/23/2025 Are you able to walk independently without assistance or assistive devices? YESWOREST Information not available 11/18/2021 Are you able to care for yourself independently? 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 No Information not available 12/08/2022 What is your exercise level? Moderate [email or web address] Information not available 02/23/2025 Mental Status Question Answer Note LastModified by Organization D etails LastModified Time Do you feel stressed (tense, restless, nervous, or anxious, or unable to sleep at night)? [id number] [email or web address] Information not available 02/23/2025 Family History Relationship Description Onset Age of this Age Resolved Age Notes LastModified by Organization Details LastModified Time Maternal Uncle Malignant neoplasm of lung [email or web address] Not available 05/2025 12:36:51 Maternal Grandmother Osteoporosis Not available 0 11/18/2021 10:20:39 Paternal Grandfather Malignant neoplasm of lung [email or web address] Not available 05/2025 12:36:51 Paternal Grandfather Heart disease Not available 2021 10:20:39 Paternal Grandfather Hypertensive disorder Not available 2021 10:20:39 Mother Disorder of thyroid gland Not available 2021 10:20:39 Maternal Aunt Disorder of thyroid gland Not available 2021 10:20:39 Father Hypertensive disorder Not available 2021 10:20:39 Father Malignant neoplasm of lung [email or web address] Not available 05/2025 12:36:51 Father Substance abuse Not available 2021 10:20:39 Father Heart disease Not available 2021 10:20:39 Unspecified Relation Malignant neoplasm of cervix uteri Not available 12/2021 10:20:39 Unspecified Relation Malignant neoplasm of breast Not available 2021 10:20:39 Maternal Grandfather Disorder of thyroid gland Not available 2021 10:20:39 Paternal Uncle Substance abuse Not available 2021 10:20:39 Paternal Uncle Heart disease Not available 2021 10:20:39 Medical History Condition Response Other Y Acid Reflux (GERD) Y Heart Problems Hepatitis/Liver Disease Y Allergies (Food, seasonal, environmental ) Y Thyroid Problems Y GI Problems Y Diabetes Y Eczema Y Gynecological History Statement/Question Response Abnormal Pap N Date of Last Mammogram Date of LMP 03/01/2011 N Was last menstrual period normal N STIs/STDs N HPV Vaccine N Current Control Method Hysterectom y Age at First Child 23 Date of Last Colonoscopy 07/02/2022 Sexually Active? Y Age of first menstrual cycle 10 Date of Last Pap Smear 03/01/2020 Sexual Problems? N LMP Definite 06/28/2022 Y Obstetrics History GPAL:G 2 P 2 0 0 2 Type Value Full Term 2 Living 2 Total 2 Past Encounters Encounter ID Performer Location Encounter Start Date Encounter Closed Date Diagnosis/Indication Diagnosis SNOMED-CT Code Diagnosis ICD10 Code Diagnosis IMO Codes Diagnosis Note [id number] Abida Mao , [facility] [address] [address] 11/18/2021 10:01:16 11/18/2021 10:44:18 Gynecologic examination 31930961 Z01.419 Suggested Calcium with Vitamin D 1200-1500m g daily. Patient advised to get an annual flu shot in the fall and she could obtain at [facility] or [facility] clinic. Also to obtain TDap vaccinatio n if you have not had one in the last 10 years. Recommend yearly mammograms . Encouraged monthly self breast exams. Encourage safe sexual practices, to use condoms and limit partners if not already in a monogamous relationsh ip. Engage in daily exercise of low impact aerobic exercise 45-60 minutes 4-5 times weekly. Avoid tobacco and illicit drugs as well as using moderation with alcohol intake less than 1-2 8 oz beverages daily. This lifestyle behavior pattern will lead to less health conditions and longer life span. If BMI greater than 25 weight watchers or dietary consult advised. All questions have been answered. Patient appears to understand informatio n, but if you have any questions please call or respond to this email. USPSTF recommends against screening for cervical cancer in women older than 65yo or with hysterecto my for non-cancer indication s, who have had adequate prior screening & are not otherwise at high risk for cervical cancer. STD screen sentGeneti c screen discussedM ammo orderedCol on screen UTDDexa n/a Menopausal symptom 97995 002 N95.1 Partial hysterecto my for AUB non-cancer related.No rmal pap/hpv hx per ptHaving some hot flashesWil l do some labs to see where she falls on the spectrum Vaginitis 54447794 N76.0 On abxGets yeast infections easily [id number] Abida Mao , [facility] [address] [address] 12/08/2022 15:44:49 12/08/2022 16:52:14 Gynecologic examination [id number] Z01.419 Suggested Calcium with Vitamin D 1200-1500m g daily. Patient advised to get an annual flu shot in the fall and she could obtain at [facility] or [facility] take care clinic. Also to obtain TDap vaccinatio n if you have not had one in the last 10 years. Recommend yearly mammograms . Encouraged monthly self breast exams. Encourage safe sexual practices, to use condoms and limit partners if not already in a monogamous relationsh ip. Engage in daily exercise of low impact aerobic exercise 45-60 minutes 4-5 times weekly. Avoid tobacco and illicit drugs as well as using moderation with alcohol intake less than 1-2 8 oz beverages daily. This lifestyle behavior pattern will lead to less health conditions and longer life span. If BMI greater than 25 weight watchers or dietary consult advised. All questions have been answered. Patient appears to understand informatio n, but if you have any questions please call or respond to this email. USPSTF recommends against screening for cervical cancer in women older than 65yo or with hysterecto my for non-cancer indication s, who have had adequate prior screening & are not otherwise at high risk for cervical cancer. STD screen sentGeneti c screen discussedM ammo orderedCol on screen UTDDexa n/aLabs PCP Persistent insomnia 1919 28381 G47.09 Today we agreed to trial of Trazodone with f/u x 4wks Counseled on medication R/B's, Most common side effects, & use. All questions were answered to patient satisfacti on. Screening mammography 24 008900 Z12.31 [id number] PAIGE Weiner [facility] [address] [address] 12/27/2023 10:25:30 12/27/2023 11:34:39 Gynecologic examination 26604206 Z01.419 WWEh/o hyst for non-cancer ous indication spaps no longer neededdecl ined STI screenmamm ogram order givencolon oscopy UTDroutine labs UTD - PCPsmoking cessation encouraged RTC in 1 yr or sooner if needed Suggested Calcium with Vitamin D daily. Patient advised to get an annual flu shot in the fall and she could obtain at local pharmacy. Also to obtain TDap vaccinatio n if you have not had one in the last 10 years. Recommend yearly mammograms . Encouraged monthly self breast exams. Encourage safe sexual practices, to use condoms and limit partners if not already in a monogamous relationsh ip. Engage in regular exercise. Avoid tobacco and illicit drugs. This lifestyle behavior pattern will lead to less health conditions and longer life span. If BMI greater than 25 dietary consult advised. All questions have been answered. Patient appears to understand informatio n, but if you have any questions please call or respond to this email. Breast lump [id number] N63 .0 bilateral diagnostic mammogram with left breast u/s ordered [id number] Nas Sainz MD [facility] [address] [address] 05/09/2024 10:55:43 05/09/2024 12:29:58 Acute urinary tract infection 059181662 N39.0 Spasm of u rinary bladder 393302389 N32.89 female who presents for urinary urgency after intercours e. She states that 4 days after intercours e she has urinary urgency. She has bladder spasms she states. She has been treated with antibiotic s. She may have had allergic reaction to Macrobid. We agreed to treat with Cipro around the time of intercours e. We also agreed to start an antispasmo dic for her bladder. Anticholin ergic drug was prescribed . The medication was sent to the pharmacy. Risks and benefits were explained to the patient. She was given precaution s and instructio ns. Spent over 30 minutes on this patient's care. Described bladder spasm, urge incontinen ce. She has a urethral sling. She will be referred to Dr. Fletcher for possible complicati ons of suburethra l sling as it pertains to bladder spasm. [id number] PAIGE Weiner [facility] [address],[place] [address] 11/13/2024 12:17:07 11/13/2024 14:30:02 Vaginitis 39264373 N76.0 Screening for malignant neoplasm of breast 239429543 Z12.39 due for mammogram , order given Urinary symptoms 6811653 08 R39.9 rx sent for macrobid, r/b/a reviewedav oid bladder irritants (decrease intake of carbonated beverages) continue vaginal estradiol creamurine cx sentcan consider postcoital prophylaxi s pending cxquestion s answered Time spent in visit is a total of 20 mins with at least 50% of visit consisting of counseling and review of plan of care. [id number] PAIGE Weiner [facility] [address],[place] [address] 02/23/2025 12:36:41 02/23/2025 14:41:20 Acute vaginitis 50069897 N76.0 90125 vaginitis panel sentrx for BV, r/b/a reviewedvu lvar care guidelines discussed Menopausal symptom 98220 002 N95.1 [id number] Reviewed management optionswil l switch to micronized progestero neRTC for WWE/med check in 2-3 months Time spent in visit is a total of 25 mins with at least 50% of visit consisting of counseling and review of plan of care. [id number] PAIGE Weiner [facility] [address] [address] 04/24/2025 09:47:14 04/27/2025 16:12:15 Gynecologic examination 42275861 Z01.356 [id number] WWEpostmen opausalPap - not indicated todaySTI screen - declinedMa mmogram - order givenColon cancer screening - UTD/PCPDex a - n/aRoutine labs - UTD/PCPRTC in 1 yr or sooner if needed Do monthly self breast exams.It is advised to get annual flu shot in the fall and she could obtain at local pharmacy. If you haven't received the Tdap vaccine in the last 10 years you should obtain one as well.Have mammogram yearly, bone density every 2-3 years and stay up to date on colon cancer screening. Engage in regular exercise. Avoid tobacco and illicit drugs. This lifestyle behavior pattern will lead to less health conditions and longer life span. If BMI greater than 25 dietary consult advised.Qu estions have been answered. Lump in bi lateral breasts [id number] 8856820 N63.10 N63.20 [id number] Urinary sy stem finding 210540231 R39.9 4930021 rx sent for current presumptiv e UTIdiscuss ed postcoital macrobid, rx sent, r/b/a reviewed, has upcoming appt with urology Urinary tr act infectious disease 29960225 N39.0 07698675 Menopausal symptom 27536 002 N95.1 refills sent Time spent in visit is a total of 40mins with at least 50% of visit consisting of counseling and review of plan of care. Health Concerns Section Related Observation LastModified by Organization Detai ls LastModified Time None Recorded Concern Status LastModified by Organization Details LastModified Time None Recorded Advance Directives Directive N: Payers Insurance Date Sequence Insurance Name Policy Number Policy Estes Covered Member ID Estes Member ID Guarantor Name 08/17/2025 1 [place] [id number] Jovana Case [id number] B Jovana Case 12/17/2023 1 [facility] [id number] Jovana Case [id number] Jovana Case 08/17/2025 1 [place] [id number] Jovana Case [id number] B Jovana Case 05/08/2024 1 [employer] [id number] Jovana Case [id number] Jovana Case Notes Date Note Type Note Provider Name and Address Organization Details Recorded Time 4 text/html Annual Preparer Making Department Post-MenopausalReported by PatientGenitourinary symptomsFor menopausal symptoms, patient reportsno menopausal symptomsandnormal vaginal lubrication. For vaginal bleeding, patient reportshistory of menopause having occurredandno history of post menopausal bleeding. For urinary symptoms, patient reportsno hematuria,no incontinence,no nocturia, andno urinary frequency. For vulva, patient reportsno genital lesionandno vulvar atrophy. For vagina, patient reportsnormal vaginal dischargeandno vaginal atrophy.Breast symptomsFor breast, patient reportsbreast lumpbut reportsno nipple dischargeandno breast pain(left breast lump).Psychological symptomsFor sexual complaints, patient reportsno sexual complaints. For psychological symptoms, patient reportsno depressionandno anxiety.Preventative measuresFor preventive measures, patient reportsencourage regular mammograms starting age 40,encourage self breast examination,encourage regular exercise,encourage no tobacco use,needs to schedule mammogram, andhistory of recent colonoscopy.WWEh/o hysterectomy at 34 for AUB, non-cancerous indicationsovaries remainno h/o abnormal papsmammogram last olonoscopy 3 years ago - told to repeat in 10 yrs repeatcurrent tobacco smokeron progesterone nightly through PCP PAIGE Weiner [address], [place], [address], [facility] 12/27/2023 11:27:39 4 text/html female who presents for urinary urgency after intercourse. She states that 4 days after intercourse she has urinary urgency. She has bladder spasms she states. She has been treated with antibiotics. She may have had allergic reaction to Macrobid. We agreed to treat with Cipro around the time of intercourse. We also agreed to start an antispasmodic for her bladder. Anticholinergic drug was prescribed. The medication was sent to the pharmacy. Risks and benefits were explained to the patient. She was given precautions and instructions. Spent over 30 minutes on this patient's care. Described bladder spasm, urge incontinence. She has a urethral sling. She will be referred to Dr. Fletcher for possible complications of suburethral sling as it pertains to bladder spasm. Nas Sainz MD [address], [place], [address], [facility] 05/09/2024 12:25:18 5 text/html 49yopresents for urinary frequency, urgency, burningsymptoms started yesterday after ICfrequently has urinary symptoms after ICon estradiol cream twice weekly from urologypreviously was on postcoital prophylactic macrobid drinks carbonated water throughout the day neg n/v/fneg flu-like symptomsneg flank painsneg pelvic painneg vaginal d/c, odors, itching PAIGE Weiner [address], [place], [address], [facility] 11/13/2024 14:25:19 5 text/html Vaginal/Vulvar ProblemReported by Patient 49yoPresents for evaluation of vaginal odorfishy odor , similar to previous BV symptomsNo new partnersh/o hyst (non-cancerous indications) ovaries remain. Taking nightly provera prescribed by her PCP for VMS/insomnia, wants to discuss this today Kristie vásquez, [facility] 02/23/2025 14:36:27 5 text/html Annual Preparer Making Department Post-MenopausalReported by PatientGenitourinary symptomsFor urinary symptoms, patient reportsburning sensation during urinationbut reportsno hematuria,no incontinence,no nocturia, andno urinary frequency. For menopausal symptoms, patient reportsno menopausal symptomsandnormal vaginal lubrication. For vaginal bleeding, patient reportshistory of menopause having occurredandno history of post menopausal bleeding. For vulva, patient reportsno genital lesionandno vulvar atrophy. For vagina, patient reportsnormal vaginal dischargeandno vaginal atrophy.Breast symptomsFor breast, patient reportsno breast lump,no nipple discharge, andno breast pain.Psychological symptomsFor sexual complaints, patient reportsno sexual complaints. For psychological symptoms, patient reportsno depressionandno anxiety.Preventative measuresFor preventive measures, patient reportsencourage regular mammograms starting age 40,encourage self breast examination,encourage regular exercise, andencourage no tobacco use.50yo wweh/o hyst (ovaries remain), non-cancerous indicationsmammogram last olonoscopy UTD dysuria, frequency, urgency x wkoften gets postcoital UTI's, seeing urology soonusing vaginal estrogen creamtaking nightly prometrium for VMS PAIGE Weiner [address], [place], [address], [facility] 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 Status 11/19/19 22 1 CLOSED Fetus Data First Name Last Name Admitted to NICU Weight (g) Sex Living Outcome Pediatric Complications Fetus ID Race Codes Race Delivery Type M [id number] Vaginal Delivery Marlon Calculation Initial Marlon Date Initial Exam Date Initial Exam Provider Initial Ultrasound Date Last Menstrual Period Date Ultra Sound Weeks Gestation 0 Eighteen To Twenty Week Marlon Update Ultra Sound Date Fundal Height At Umbil Quickening Date Ultra Sound Latest Weeks Gestation Final Marlon Confirmed By Final Marlon Confirmed Date Final Marlon Date Ultra Sound Latest Days Gestation 0 0 Menstrual History Last Menstrual Date Menses Monthly On Bcp Conception Prior Menses Frequency Hcg Plus Date Menarche Onset Age Delivery Information Delivery Date Delivery Type Labor Anesthesia Weeks Gestation Incision Type Labor Labor Length Hrs Delivered By Post Complications Tubal Sterilization Discharge Date Comments 0 Discharge Information Feeding Method Contraceptive Method Maternal HG B and HCT Levels Ob Episode Information Episode Created Date Number of Fetuses Patient Bloodtype Patient rh Status Prepregnancy Weight lbs Domestic Partner Domestic Partner Phone Father Name 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 Status 11/19/19 22 1 CLOSED Fetus Data First Name Last Name Admitted to NICU Weight (g) Sex Living Outcome Pediatric Complications Fetus ID Race Codes Race Delivery Type F [id number] Vaginal Delivery Marlon Calculation Initial Marlon Date Initial Exam Date Initial Exam Provider Initial Ultrasound Date Last Menstrual Period Date Ultra Sound Weeks Gestation 0 Eighteen To Twenty Week Marlon Update Ultra Sound Date Fundal Height At Umbil Quickening Date Ultra Sound Latest Weeks Gestation Final Marlon Confirmed By Final Marlon Confirmed Date Final Marlon Date Ultra Sound Latest Days Gestation 0 0 Menstrual History Last Menstrual Date Menses Monthly On Bcp Conception Prior Menses Frequency Hcg Plus Date Menarche Onset Age Delivery Information Delivery Date Delivery Type Labor Anesthesia Weeks Gestation Incision Type Labor Labor Length Hrs Delivered By Post Complications Tubal Sterilization Discharge Date Comments 9 Discharge Information Feeding Method Contraceptive Method Maternal HG B and HCT Levels
--- OUTSIDE RECORDS SUMMARY | 2025-08-19 16:50 | XMS_ITS | Clinical Summary ---
Author Organization [facility] Address [address] [place] [address] Care Team Providers Care Therapeutic Strategy Lead Name Role Phone Zurdo Coyne Primary Care [...] 2025 02/05/2022, 08/03/2021, 12/24/2020, Additional history exists Influenza Adult (#1) 2025 08/03/2021, 06/14/2020, 07/21/2019, Additional history exists DTaP, Tdap and Td Vaccines (2 - Td or Tdap) 06/29/2026 06/29/2016 Hepatitis A Vaccines Aged Out No long er eligible based on patient's age to complete this topic Meningococcal B Vaccine Aged Out No l onger eligible based on patient's age to complete this topic Meningococcal Vaccine Aged Out No paolo falguni eligible based on patient's age to complete this topic RSV Immunizations Under 20 Months Aged Out No longer eligible based on patient's age to complete this topic Insurance [employer] Care Teams Therapeutic Strategy Lead Relationship Specialty Start Date End Date Zurdo Coyne PA [facility] [place] [address] PCP - General 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
--- OUTSIDE RECORDS SUMMARY | 2025-08-19 16:51 | XMS_ITS | Clinical Summary ---
Author Organization [facility] Contacts+ Address [address] [place] [address] Care Team Providers Care Spark Tester Name Role Phone Karla Seo RN Unavailable [phone] Anh Luna DO Unavailable [phone] Demian Tariq MD Unavailable [phone] Donald Baker MD Primary Care Provider [phone] Nicole Davies [facility] Unavailable [phone] Source Comments [facility],non-owned Affiliates and Associated Physician Practices is amultiple site organization consisting of ambulatory clinics and hospital sitesin [place], [place], [place] and [place]. This disclosure is being madepursuant to the Care Everywhere program and may not contain all information available regarding this patient. Last updated 18.[facility] Contacts+ Allergies Active Allergy Reactions Criticality Noted Date Comments Amoxicillin Diarrhea,Itching Medium 01/02/2016 Ciprofloxacin GI Discomfort 09/18/2018 Sulfa Drugs Redness Low 03/03/2009 Alcohol Itching Medium 01/02/2016 Medications * Be aware that medications may not be up to date on this document. Alwaysverify current medications with the patient. liothyronine (CYTOMEL) 50 MCG tablet TAKE 2 TABLETS IN AM AND 2 TABLET IN PM 5 04/25/2016 Active metFORMIN (GLUCOPHAGE) 500 MG tablet Take 1 tablet by mouth once daily 02/04/2020 Active RYBELSUS 14 MG tablet 09/20/2020 Active pramipexole (MIRAPEX) 0.125 MG tabletIndicatio ns:Restless legs syndrome (RLS) Take 1 (one) tablet by mouth at bedtime 90 tablet 3 07/22/2021 Active DIPHENHYDRAMINE HCL PO Take 100 mg by mouth Active pantoprazole EC (Protonix) 40 MG tablet TAKE 1 TABLET TWICE A DAY 180 tablet 3 09/29/2024 Active Active Problems Problem Noted Date Diagnosed Date Diverticulosis of colon 08/06/2024 Hypothyroidism due to acquired atrophy of thyroi d 02/07/2016 Overview (06/29/2016): Dose recently adjusted by roustabout, doing well Assessment & Plan (04/16/2020 2:41 PM CDT): Continue current medication. Assessment & Plan (07/13/2017 4:36 PM CDT): Continue current medication. Assessment & Plan (06/29/2016 7:56 AM CDT): Continue current medication. Assessment & Plan (02/07/2016 10:13 AM CDT): Check tsh/t4 ADD (attention deficit disorder) 02/07/2016 Overview (02/07/2016): Not on medication. Prior testing positive. Assessment & Plan (02/07/2016 10:14 AM CDT): Refer for evaluation. Erosive gastritis with hemorrhage 11/02/2015 Overview (03/10/2022): Dr. Tariq/GI 10/2015, 02/2022 Assessment & Plan (04/16/2020 2:42 PM CDT): Continue current medication. Assessment & Plan (07/13/2017 4:37 PM CDT): Continue current medication. Internal hemorrhoids 08/12/2013 IBS (irritable bowel syndrom e) with alternating diarrhea and constipation 08/12/2013 Hiatal hernia 08/12/2013 Overview (06/29/2016): GERD sx if misses for 2-3 days Assessment & Plan (06/29/2016 7:57 AM CDT): Continue current medication. Encounter for health-related screening Overview (12/15/2017): Adult Abstraction Problem List Screening Dexa Scan (Bone Density): Result: Pap Smear: LAVH 03/15/2010 negative 03/03/0912/2007 Neg Denies hx abn paps Mammogram: Result: CF Test: Result: IMO update 12 16 2017 Resolved Problems Problem Noted Date Diagnosed Date Resolved Date Depression 05/15/2016 08/22/2021 Overview (04/16/2020): Doing well off medication, prior stressors Assessment & Plan (04/16/2020 2:40 PM CDT): Monitor off medication Assessment & Plan (06/29/2016 7:55 AM CDT): Continue current medication. Assessment & Plan (05/15/2016 11:20 AM CDT): Start citalopram 20 mg qd, off work 2 weeks Erosive gastritis 08/12/2013 06/11/2014 Right greater trochanteric b ursitis with gluteus medius tendonitis 05/27/2012 06/11/2014 Immunizations Immunization Administration Dates Next Due INFLUENZA VACCINE, TRIV. (AF LURIA, FLUZONE TRIVALENT; 6MO+) (IIV3) 06/30/2013,07/01/2012,08/03/2010 Covid Solx primary monoval ent 12+ yr 0.3mL Purple cap 12/24/2020,11/25/2020 INFLUENZA VACCINE 07/26/2021,06/27/2016 INFLUENZA VACCINE, QUADR. (A FLURIA, FLUZONE QUADRIVALENT; 6MO+) (IIV4) 07/13/2017 INFLUENZA VACCINE, QUADR. (F LUZONE; FLULAVAL; FLUARIX; AFLURIA QUADRIVALENT; 6MO+), 0.5 ML (IIV4) 06/14/2020,07/21/2019,07/22/2018 TDAP (7yrs+) 06/29/2016 Family History Medical History Relation Name Comments Arthritis Father CAD (Coronary Artery Disease) Father Cancer Father lung Hypertension Father Arthritis Maternal Grandfather Arthritis Maternal Grandmother Cancer - Breast Maternal Grandmother Arthritis Mother Other Mother colectomy due t o ruptured appendex Cancer - Breast Other cousin maternal Cancer Paternal Grandfather lung Hypertension Paternal Grandfather Arthritis Paternal Grandmother Diabetes Paternal Grandmother Cancer - Colon Neg Hx Cancer - Ovarian Neg Hx Colon polyps Neg Hx Relation Name Status Comments Brother Alive Daughter 1 donte Alive Daughter 2 bo Alive Father (Age 66) [facility], heart disease Maternal Grandfather Maternal Grandmother Mother Alive Other cousin Other Paternal Grandfather Paternal Grandmother Alive Social History Tobacco Use Types Packs/Day Years Used Date Smoking Tobacco: Former Cigarettes Smokeless Tobacco: Never Tobacco Cessation:Counseling Given: No Comments:quit 2008 Alcohol Use Standard Drinks/Week Comments Yes 0 (1 standard drink = 0.6 oz pur e alcohol) rarely PHQ-2 Answer Date Recorded PHQ2 TOTAL SCORE 0 06/21/2021 Comments No Sex and Gender Information Value Date Recorded Sex Assigned at Female 06/18/2021 10:08 AM CDT Legal Sex Female 8:45 AM COMPLIANCE DIRECTOR Gender Identity Female 01/06/2018 1:07 PM CDT Sexual Orientation Straight 06/18/2021 10 :08 AM CDT 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 Not on file Not on file Not on marylu e Last Filed Vital Signs Vital Sign Reading Time Taken Comments Blood Pressure 147/98 03/12/2022 7:00 PM CDT Pulse 114 03/12/2022 3:18 PM CDT Temperature 36.7 C (98.1 F) 03/12/2022 3:18 PM CDT Respiratory Rate 16 03/12/2022 3:18 PM CDT Oxygen Saturation 98% 03/12/2022 7:16 PM CDT Inhaled Oxygen Concentration - - Weight 60.3 kg (133 lb) 03/12/2022 3:18 PM CDT Height 160 cm (5' 3) 03/12/2022 3:18 PM CDT Body Mass Index 23.56 03/12/2022 3:18 PM CDT Plan of Treatment Health Maintenance Due Date Last Done Comments COLOGUARD (AGES 45-75) - COLON CA SCREENING 1973 CT COLONOGRAPHY - COLON CA SCREENING 1973 FIT - COLON CA SCREENING 1973 FLEX SIG - COLON CA SCREENING 1973 HEPATITIS B VACCINE (1 of 3 - 19+ 3-dose series) 1992 PAP with HPV 2003 Cervical Cancer Screening 03/03/2012 PAP SMEAR 03/03/2012 03/03/2009 LIPID TESTING 02/07/2021 02/08/2016 MAMMOGRAM 10/24/2021 10/24/2019, 06/19, 05/24/2017, Additional history exists PNEUMOCOCCAL VACCINE 50+ (1 of 1 - PCV) 2023 ZOSTER VACCINE (1 of 2) 2023 DEPRESSION SCREENING 09/17/2024 COVID-19 VACCINE (3 - 2024- season) 2025 12/24/2020, 11/25/2020 INFLUENZA VACCINE (#1) 2025 , 06/14/2020, 07/21/2019, Additional history exists DTAP/TDAP/TD VACCINES (2 - Td or Tdap) 06/29/2026 06/29/2016 COLON MONITORING 08/04/2034 08/04/2024, 08/12/2013 COLONOSCOPY - COLON CA SCREENING 08/04/2034 08/04/2024, 08/12/2013, 08/12/2013 Colorectal Cancer Screening 08/04/2034 HEPATITIS C SCREENING Completed 09/01/2010, 009 HIV SCREENING Completed 09/01/2010, 03/03/2009 HIB VACCINE Aged Out No longer eligi ble based on patient's age to complete this topic HPV VACCINE Aged Out No longer eligi ble based on patient's age to complete this topic MENINGOCOCCAL (Group B) VACCINE SHARED DECISION-MAKING Aged Out No longer eligible based on patient's age to complete this topic MENINGOCOCCAL GROUPS A/C/Y/W VACCINE Aged Out No longer eligible based on patient's age to complete this topic Goals Goal Patient Goal Type Associated Problems Recent Progress Patient-Stated? Author [facility] Lifestyle:Uri mtz PCP visit Lifestyle No Suzan Lux MA Procedures Procedure Name Priority Date/Time Associated Diagnosis Comments ENDOSCOPY, COLON, SCREENING Routine 08/04/2024 Irritable bowel syndrome with diarrhea MAMMO BILAT DIAGNOSTIC Routine 10/24/2019 9:14 AM COMPLIANCE DIRECTOR Breast pain LIPID PROFILE Routine 02/08/2016 8:33 AM CDT Lipid screening HEPATITIS C ANTIBODY W/REFLEX RIBA Routine 09/01/2010 2:22 PM COMPLIANCE DIRECTOR Screening for STDs (sexually transmitted diseases) HIV-1 HIV-2 ANTIBODY Routine 09/01/2010 2:22 PM COMPLIANCE DIRECTOR Screening for STDs (sexually transmitted diseases) PAP IG LB CT+GC RFLX HPV HR ASCU Routine 03/03/2009 5:44 PM CDT Well Woman Exam with Routine Gynecological Exam from Last 3 Months or Most Recently Relevant to Health Maintenance Results * Endoscopy, Colon, Screening (08/04/2024) Nicole Davies [employer]EM[employer] GI PROCEDURE ORDERA BLES Final Result SS RESULT SCAN * MAMMOGRAM DIGITAL DIAGNOSTIC BILATERAL G0204 (10/24/2019 9:14 AM COMPLIANCE DIRECTOR) Anatomical Region Laterality Modality Breast Bilateral Mammography 10/24/2019 9:27 AM COMPLIANCE DIRECTOR Impressions 10/24/2019 9:39 AM COMPLIANCE DIRECTOR 1. No mammographic evidence of malignancy in either breast. 2. Asymmetry in the left breast has remained stable for over two years and is benign. Return to routine screening mammography is recommended. BI-RADS Category 2: Benign finding(s). Recommendation: Resume routine yearly mammography schedule for women over age 40 or return sooner if clinically indicated. Reading Radiologist: Krista Dumont MD on 10/24/2019 at 9:39 AM Narrative 10/24/2019 9:39 AM COMPLIANCE DIRECTOR Bilateral Diagnostic Mammography Most recent comparison: 07/17/2018. HISTORY: Follow-up of a probably benign finding in the left breast. TECHNIQUE: Mammography views included: Bilateral CC and MLO views and additional diagnostic views as per protocol. Images interpreted with CAD. Following current [facility] protocol, 3D mammographic tomosynthesis images were obtained and reviewed on a dedicated viewing station. FINDINGS: Breast composition: Heterogeneously dense which may obscure small masses. Follow-up was performed for a probably benign finding seen on the prior exam. On today's exam, there is a stable 1.5 cm asymmetry in the medial left breast located 5 cm from the nipple which partially effaces on a CC spot compression view and appears similar to prior exams dating back to 2012, consistent with benign superimposed fibroglandular tissue. There is a collapsed left-sided breast implant. No suspicious calcifications, masses, or areas of architectural distortion are seen in either breast. Anh Luna DO MAMMO ORDERABLES Final Resul t * (ABNORMAL) LIPID PROFILE (02/08/2016 8:33 AM CDT) Cholesterol 188 125 - 200 mg/dL [facility] Comment: Test Performed at: [facility] [address] [address] MELI SUNG DO,MPH HDL Cholesterol 39(L) > OR = 46 mg/dL [facility] Triglycerides 221(H) <150 mg/dL [facility] LDL Calculated 105 <130 mg/dL (calc) [facility] Comment: Desirable range <100 mg/dL for patients with CHD or diabetes and <70 mg/dL for diabetic patients with known heart disease. CHOL/HDLC RATIO 4.8 < OR = 5.0 (calc) [facility] Non HDL Cholesterol 149 mg/dL (calc) [facility] Comment: Target for non-HDL cholesterol is 30 mg/dL higher than LDL cholesterol target. Blood specimen (specimen) BLOOD SPECIMEN / Unknown 02/08/2016 8:33 AM CDT 02/08/2016 8:34 AM CDT Donald Baker MD LAB - CHEMISTRY ORDERABLES F inal Result [facility] [address] [place] [address] * HIV-1 HIV-2 ANTIBODY (09/01/2010 2:22 PM COMPLIANCE DIRECTOR) HIV-1 Antibody O.D. Ratio <1.00 <1.00 [facility] INSURANCE BILL Comment:Index Value: Specime n reactivity relative to the negative cutoff. HIV-1/HIV-2 Non Reactive Non Reactive [facility] INSURANCE BILL BLOOD SPECIMEN / Unknown 09/01/2010 2:22 PM COMPLIANCE DIRECTOR 09/01/2010 8:59 PM COMPLIANCE DIRECTOR Narrative Resulting Agency Comment [facility] [address] [id number] Miguel Ryder MD LAB - CHEMISTRY ORDERABLES Fin al Result Performing Organization Address [facility] de Phone Number [facility] INSURANCE BILL [address] [place] [address] * HEPATITIS C ANTIBODY W/REFLEX RIBA (09/01/2010 2:22 PM COMPLIANCE DIRECTOR) Hepatitis C Virus Antibody S/CO Ratio <0.1 0.0 - 0.9 s/co ratio [facility] INSURANCE BILL Comment: Negative Not infected with HCV, unless recent infection is suspected or other evidence exists to indicate HCV infection. BLOOD SPECIMEN / Unknown 09/01/2010 2:22 PM COMPLIANCE DIRECTOR 09/01/2010 8:59 PM COMPLIANCE DIRECTOR Narrative Resulting Agency Comment [facility] [address] [id number] Miguel Ryder MD LAB - CHEMISTRY ORDERABLES Fin al Result Performing Organization Address [facility] Co de Phone Number [facility] INSURANCE BILL [address] [place] [address] * PAP IG CT-NG RFLX HPV ASCU (PO REF LAB) (03/03/2009 5:44 PM CDT) Diagnosis [facility] INSURANCE BILL Comment:NEGATIVE FOR INTRAEP ITHELIAL LESION AND MALIGNANCY. Specimen Adequacy [facility] INSURANCE BILL Comment: Satisfactory for evaluation. Endocervical and/or squamous metaplastic cells (endocervical component) are present. Clinician Provided ICD9 [facility] INSURANCE BILL Comment:V72.31 ; Routine salesperson trailers and motor homes ecological examination Performed by [facility] INSURANCE BILL Comment:Mariangel Harris Cytot echnologist (ASCP) Comment . [facility] INSURANCE BILL Note [facility] INSURANCE BILL Comment: The Pap smear is a screening test designed to aid in the detection of premalignant and malignant conditions of the uterine cervix. It is not a diagnostic procedure and should not be used as the sole means of detecting cervical cancer. Both false-positive and false-negative reports do occur. . IGLBP CPT Code Automation [facility] INSURANCE BILL Comment: This liquid based ThinPrep(R) pap test was screened with the use of an image guided system. Reflex [facility] INSURANCE BILL Comment: The HPV DNA reflex criteria were not met with this specimen result therefore, no HPV testing was performed. . Chlamydia trachomatis MARINO Negative Negative [facility] INSURANCE BILL GC DNA Probe Negative Negative [facility] INSURANCE BILL MICROSCOPIC CYTOLOGIC EXAMINATION OF SMEAR OF SPECIMEN FROM FEMALE GENITAL TRACT PREPARED USING PAPANICOLAOU TECHNIQUE / Unknown 03/03/2009 5:44 PM CDT 03/05/2009 3:30 AM CDT Narrative [facility] INSURANCE BILL - 03/09/2009 8:12 PM CDT No. of containers..01 CYTYC Thin Prep Vial Resulting Agency Comment [address] [id number] Miguel Ryder MD LAB - PATHOLOGY/CYTOLOGY ORDER CADEN Final Result [facility] INSURANCE BILL [address] [place] [address] from Last 3 Months or Most Recently Relevant to Health Maintenance Insurance [employer] Advance Directives * Full Code (Latest Code Status on File) Date Activated Date Inactivated Comments 02/05/2014 10:52 AM 02/08/2014 1:07 PM * Full Code Date Activated Date Inactivated Comments 03/15/2010 10:32 AM 03/17/2010 12:30 AM Care Teams Spark Tester Relationship Specialty Start Date End Date Donald Baker MD [address] [facility] [facility] [place] [id number] PCP - General 11/14/21 Nicole Davies, [employer] MAINTENANCE FOREMAN [address] [place] [id number] PCP - Attributed-[place] [employer] 07/18/24 Karla Seo, RN Design Project Manager 02/05/14 [place] [address], [address] Obstetrics and Gynecology 07/13/14 Demian Tariq MD [address] [place], [place] [id number] (work) Taker Out Gastroenterology 02/07/16
--- OUTSIDE RECORDS SUMMARY | 2025-08-19 16:51 | XMS_ITS | Clinical Summary ---
Author Organization [facility] Address [address] [facility] [place] [address] Phone Care Team Providers Care Manager Contract Name Role Phone Donald Baker MD Primary Care Provider [phone] Allergies Active Allergy Reactions Criticality Noted Date [...] Baker MD Referring [place]: [place] [address] [place] [address] Other: No known active problems Family History [...] Most Recently Relevant to Health Maintenance Insurance [id number] BLUE ACCESS CHOICE Care Teams Manager Contract Relationship Specialty Start Date End Date Donald Baker MD [address] [facility] [address] [place] [phone] PCP - General Internal Medicine 01/17/17
== END 2025-08-19 15:41 | disposition home or self-care (01) ==
PROVIDERS: Visit Provider Anesthesiology
DX: E78.5 Hyperlipidemia, unspecified (principal); E11.9 Type 2 diabetes mellitus without complications; Z01.818 Encounter for other preprocedural examination; E55.9 Vitamin D deficiency, unspecified
CPT/HCPCS: 93005

== ENCOUNTER 2025-08-26 05:58 | Day surgery (SDC) | payer OTHER, SELFPAY ==
[2025-08-26] VITALS (10 sets, daily range): BP systolic 101–124; BP diastolic 61–87; PULSE 74–99; RESP 12–18; TEMP 35.9–36.6; O2SAT 95–100; BMI 23.3
[2025-08-26] MEDS: TRANEXAMIC ACID 1,000 MG/10 ML AMPUL 1000 MG IV PUSH (06:52)
--- NOTE | 2025-08-26 07:04 | WPDHPUPDATE1 ---
History and Physical Update Update Date/Time: 08/26/25 07:04 History and Physical has been reviewed, including an updated exam of the patient. There are NO changes in the patient's condition. Risks, benefits, and alternatives have been discussed and questions answered. Patient agrees to proceed with procedure.
--- NOTE | 2025-08-26 07:12 | SUR.PREOP ---
FEMALE STAFF IN ROOM WHILE DR OCONNOR MARKED PT
[2025-08-26] MEDS: SCOPOLAMINE 1 MG PATCH 1.5 PATCH TRANSDERM (07:15)
--- NOTE | 2025-08-26 07:17 | P.OP_ITS ---
Procedure Note - Detailed Date of Procedure 08/26/25 Pre-op Diagnosis History of Breast Augmentation, Dermatochalasis Post-op Diagnosis Same Procedure Performed 1. Bilateral transconjunctival blepharoplasty with pinch blepharoplasty and fat grafting 2. Bilateral breast implant exchange 3. Bilateral inverted nipple repair (revision) Surgeon Luis Fernando Villalba MD Anesthesia General Findings Fat grafting: Right: 4 cc Left: 4.5 cc Previous implants Saline 68MP-360 New implants Bilateral Sulaiman Arnold Softtouch 295cc Right: REF# [id number] SN [id number] Left: REF# [id number] SN [id number] Description of Procedure Preoperatively the risks, benefits, alternatives were discussed in extensive detail. I wanted to be very realistic about the risks involved as well as expectations. I was clear about how we could actually make her worse. Answered all questions to satisfaction. Voiced a clear understanding. Consent obtained. She was taken the operating room placed supine on the operating room table. Anesthesia provided by anesthesiology and prepped and draped in a standard sterile fashion. Implant exchange Surgical time-out was taken. 1% lidocaine and 0.25% Marcaine with epinephrine was used to provide a field block. Tegaderm nipple contreras were placed. Fifteen blade used to excise the previous IMF scars. Dissection was continued down until the capsules were identified and entered. Previous implants removed (ruptured). No worrisome features. Capsulotomy and capsulorraphy completed as appropriate. I then copiously irrigated with 3 L of saline solution on TUR tubing. Verified strict hemostasis. I then irrigated with Betadine containing solution. Using a no-touch technique and a العراقي funnel the implant was introduced into the pocket. This was closed with 2-0 PDS followed by 3-0 Monocryl and a running subcuticular 4-0 Monocryl followed by tissue glue. Inverted nipple A 15 blade was used to make an incision inferior to the nipple. Dissection was continued and ducts spread until release of the inverted nipple. Horizontal mattress 3-0 Monocryl placed. Skin closure with 5-0 plain gut suture. Fat [place] Thorough abdominal examination completed. Stab incision was made at umbilicus and tumescent was utilized for hemostasis. Suction lipectomy was completed with hand lipo and placed for gravity separation on a 3mm multihole harvest cannula. Lower blepharoplasty She was re-prepped and draped in a standard sterile fashion. For the lower eyes 1% lidocaine and 0.25% Marcaine with epinephrine was used anesthetize locally with low volume of local to protect from distortion of structures. Eyes were irrigated with BSS. Tetracaine eyedrops placed. Corneal protectors also placed. Needle-tip cautery was used to incise just inferior to the tarsus and a transconjunctival lower lid blepharoplasty technique. The conjunctiva was retracted with a 5-0 nylon. I elevated in a preseptal fashion down to the level of the rim. At this point I entered the nasal, middle, and lateral compartments and removed only what was clearly excess adiposity. I verified strict hemostasis throughout. I verified that the inferior oblique was protected during this procedure. With gentle pressure on the globe I verified the contour the lower lids. Both lids proceeded in the same manner. Retraction suture and corneal protectors were removed. Copious irrigated again with BSS solution. Only the central fat from the syringes were used. These were passed through [employer] microfat grafting connectors t0 2.4 then 1.2 microns. 18 gauge needle utilized to make stab incisions. Fat infiltrated on tulip fat grafting cannulas in multiple plans and passes based on preoperative planning and intraoperative observation. Lower lid pinch blepharoplasty completed. 15 blade / scissors used to excise a minimal strip of tissue based on tissue pinch. This was closed with 5-0 plain gut suture. A 4-0 nylon temporary tarsorrhaphy placed bilateral lateral lids. Dressings were placed. She was woken taken to the PACU without difficulty. All instrument sponge counts were correct at the end of the case. Estimated Blood Loss 10 Drains No Packing No Pathology None sent Complications No immediate complications Condition Stable Disposition PACU
--- NOTE | 2025-08-26 07:26 | WPDANESEPPF ---
Anes - Initial Pre Proc Eval Procedure: Operation Date: 08/26/25 07:30 Proposed Procedures p Bilateral Breast Implant Exchange, Bilateral Nipple Inversion Repair - Luis Fernando Villalba MD s Lower Eyelid Blepharoplasty with Fat Grafting - Luis Fernando Villalba MD Date/Time: 08/26/25 07:26 Surgeon: Luis Fernando Villalba MD Pre Op Diagnosis: History of Breast Augmentation, Dermatochalasis Patient Data Age: 50 Gender: F Height: 1.6 m Weight: 59.8 kg Last Vital Signs Temp 97.3 F L 08/26/25 06:30 Pulse 74 08/26/25 06:30 Resp 18 08/26/25 06:30 BP 114/78 08/26/25 06:30 Pulse Ox 100 08/26/25 06:30 O2 Del Method Room Air 08/26/25 06:30 Allergies Allergy/AdvReac Type Severity Reaction Status Date / Time pumpkin Allergy Severe Anaphylaxis Verified 08/26/25 06:22 venom-wasp Allergy Intermediate Swelling Verified 08/26/25 06:22 Penicillins Allergy Mild Rash Verified 08/26/25 06:22 Sulfa (Sulfonamide Allergy Mild Rash Verified 08/26/25 06:22 Antibiotics) morphine AdvReac Intermediate Hallucinati Verified 08/26/25 06:22 ng bees Allergy Intermediate Swelling Uncoded 08/19/25 11:38 Home Medications ?Medication ?Instructions ?Recorded ?Confirmed ?Type pantoprazole 40 mg tablet,delayed 40 mg PO QAM 09/13/23 08/26/25 History release pramipexole 0.125 mg tablet 0.125 mg PO QHS 09/13/23 08/26/25 History levothyroxine 100 mcg tablet See Rx Instructions .Route 12/15/24 08/26/25 Rx .COMPLEX #78 tabs liothyronine 5 mcg tablet See Rx Instructions .Route 12/15/24 08/26/25 Rx .COMPLEX #180 tabs progesterone micronized 100 mg 100 mg PO QAM 03/10/25 08/26/25 History capsule atorvastatin 10 mg tablet See Rx Instructions .Route 04/09/25 08/26/25 Rx .COMPLEX #90 tabs tirzepatide 5 mg/0.5 mL See Rx Instructions .Route 06/01/25 08/19/25 Rx subcutaneous pen injector .COMPLEX #6 mL (Mounjaro) trazodone 50 mg tablet 75 mg PO QHS PRN sleep 07/14/25 08/26/25 History calcium phosphate,dibasic 77 See Rx Instructions PO .COMPLEX 08/19/25 08/26/25 History mg-vitamin D3 400 unit tablet cranberry 500 mg capsule 500 mg PO DAILY 08/19/25 08/26/25 History estradiol 0.01% (0.1 mg/gram) See Rx Instructions vaginal 08/19/25 08/26/25 History vaginal cream .COMPLEX multivitamin (Daily Multi-Vitamin 1 tablet PO DAILY 08/19/25 08/26/25 History tablet) Laboratory Tests 08/26/25 06:48 POC Capillary Glucose 97 mg/dl (65-105) Patient hx anesthesia problems: none Family hx anesthesia problems: none Results Review: All pre-operative results and documents have been reviewed as part of the pre-operative evaluation. [facility] Past Medical History Medical History IBS (irritable bowel syndrome) Thyroid disorder Pre-diabetes Ruptured appendix Fatty liver Restless leg syndrome Esophagitis GERD (gastroesophageal reflux disease) Surgical History Surgical History History of ERCP Hx of cholecystectomy Hx of tonsillectomy History of bladder suspension procedure History of hysterectomy Family History Family History Father , age 66 d/t liver cancer Hx of heart artery stent, Onset Age: 53 x5 Liver cancer Hypertension Mother Thyroid disorder Sibling Hypertension Social History Social History Social History: Pt smokes about 2 cigarettes a week. Pt only smokes whenever she is stressed. Caffeine coffee, tea, cola 3 cups/ can per day Years smoked: 15 Smoking status: Current some day smoker Tobacco type: cigarettes Alcohol intake: current Alcohol use details: Wine Substance use: never Substance use type: does not use Lack of Transportation: No Lack of Food: Never True Current Housing: I Have Housing Concerned About Future Housing: No Difficulty Paying Gas/Electric Bills: No Difficulty Paying for Meds: No Currently Unemployed: No Education: Master's Degree or Higher Difficulty w/ Childcare or Family Care: No Living arrangements: with friend(s) Gender identity (if verbalized by the patient): Female Anes - Eval Final PreProcedure Day of Procedure 08/26/25 07:26 Heart: regular rate and rhythm Lungs: clear to auscultation Airway: Mallampati scale class II Neurological: alert and oriented Last oral intake: >/= 8 hours ASA classification: II Anesthetic plan: proceed Anesthesia type and monitoring: general Results Review: All pre-operative results and documents have been reviewed as part of the pre-operative evaluation. Informed Consent: The patient's anesthetic plan and its attendant risks and benefits were discussed with the patient/family/POA. Questions were solicited and answers provided to the satisfaction of the patient/family/POA.
[2025-08-26] MEDS: LACTATED RINGERS 1,000 ML 30 ML IV CONT ×2 (07:28→10:56)
--- NOTE | 2025-08-26 07:40 | SUR.PREOP ---
PT HAS 3 RED SPOTS ON LT SIDE OF ANTERIOR NECK. PT TOOK A PHOTO OF SELF UPON ARRIVAL TO [facility]. SHE HAD THE SAME 3 SPOTS PRIOR TO ARRIVAL TODAY. DR GARCIA AND DR OCONNOR AT BEDSIDE. OK TO PROCEED.
[2025-08-26] MEDS: ceFAZolin SODIUM 2 GM/20 ML SW SYRINGE IV PUSH (07:41)
[2025-08-26] MEDS: LIDO 1%/EPINEPHRINE 1:100,000 20 ML VIAL 40 ML (08:42)
[2025-08-26] MEDS: BALANCED SALT SOLN OPHTH IRRIG 30 ML BTL (09:05)
[2025-08-26] MEDS: NACL 0.9% IRRIG POUR BOTTLE 900 ML, GENTAMICIN SULFATE INJ 160 MG, ceFAZolin 2 GM, POVI... IRRIGATION (09:06)
[2025-08-26] MEDS: NACL 0.9% IRRIG BAG 1,000 ML, LIDOCAINE 1% LOCAL INJ 75 ML, EPINEPHrine HCL INJ 3 MG INFILTRATE (09:08)
[2025-08-26] MEDS: LIDO 1%/EPINEPHRINE 1:100,000 20 ML VIAL 5 ML INFILTRATE (09:41)
[2025-08-26] MEDS: oxyCODONE HCL (*CRX) 5 MG TAB IR PO (12:13)
== END 2025-08-26 12:36 | disposition home or self-care (01) ==
PROVIDERS: Visit Provider Surgery Plastic and Reconstructive Surgery
PROC: (CPT 19342; principal; 2025-08-26 07:30)
PROC: (CPT 19355; 2025-08-26 07:30)
DX: Z41.1 Encounter for cosmetic surgery (principal); N64.89 Other specified disorders of breast; H02.835 Dermatochalasis of left lower eyelid; H02.832 Dermatochalasis of right lower eyelid
CPT/HCPCS: 19355; 15820; 15773; 19370; 19325; J3290